=== PATIENT | female | born 1950 | race American Indian/Alaskan Native ===

== ENCOUNTER 2016-10-31 10:35 | Inpatient (IN) | payer MEDICAID, MEDICARE ==
[2016-10-31 12:04] LABS: Basophils % (Auto) 0.4 % (0.0-1.8); Eosinophils % (Auto) 0.4 % (0.0-4.3); Hematocrit 35.4 % (30.3-42.9); Hemoglobin 11.5 gm/dl (10.1-14.3); Mean Corpuscular HGB Conc 33 % (30-34); Mean Corpuscular Hemoglobin 31 pg (28-32); Mean Corpuscular Volume 96 fl (79-97); Platelet Count 185 K/mm3 (140-440); Red Blood Count 3.68 M/mm3 (3.65-5.03); Red Cell Distribution Width 14.8 % (13.2-15.2)
[2016-10-31 12:19] LABS: Alanine Aminotransferase 20 units/L (7-56); Albumin 4.5 g/dL (3.9-5); Albumin/Globulin Ratio 1.8 %; Alkaline Phosphatase 63 units/L (35-129); Anion Gap 20 mmol/L; BUN/Creatinine Ratio 21.66; Bilirubin,Total 0.5 mg/dL (0.1-1.2); Blood Urea Nitrogen 13 mg/dL (7-17); Calcium 9.5 mg/dL (8.4-10.2); Carbon Dioxide 26 mmol/L (22-30); Chloride 98.6 mmol/L (98-107); Glucose 146 mg/dL (65-100); Lipase 58 units/L (13-60); Potassium 3.9 mmol/L (3.6-5.0); Sodium 141 mmol/L (137-145)
[2016-10-31 12:34] LABS: Bacteria,Urine 4+ /HPF (Negative); Bilirubin,Urine NEG (Negative); Blood,Urine NEG (Negative); Ketones,Urine TR mg/dL (Negative); Leukocyte Esterase,Urine TR (Negative); Mucus,Urine 2+ /HPF; Nitrite,Urine POS (Negative)
[2016-10-31] MEDS ORDERED: NACL ONE (16:51)
[2016-10-31] MEDS ORDERED: ZOFRAN IV ONE (16:52)
[2016-10-31] MEDS ORDERED: NACL 0.9% 1000 ML 1,000 ML IV ONE (16:52)
[2016-10-31] MEDS ORDERED: PEPCID IV ONE (16:52)
[2016-10-31] MEDS ORDERED: BENTYL IM ONE (16:53)
--- NOTE | 2016-10-31 16:54 | Emergency Department Report ---
ED Abdominal Pain HPI - General Chief Complaint: Abdominal Pain Stated Complaint: ABD PAIN Time Seen by Provider: 10/31/16 16:42 Source: patient, RN notes reviewed Mode of arrival: Ambulatory Limitations: No Limitations - History of Present Illness Initial Comments: This is a 66-year-old female. She is previously unknown to me. Her primary care doctor is at [facility]. She reports a past medical history of hypertension, diabetes and high cholesterol. Distant history of 3. Patient presents to the ER with abdominal pain. Abdominal pain present for the past few days. Epigastric, bilateral upper quadrants. Positive nausea, no vomiting. No lower abdominal pain. Patient thinks that she is constipated. No fevers or chills. No chest pain or soreness of breath. Symptoms have been present for the past few days. They worsen with palpation, decreased with rest. MD Complaint: abdominal pain -: Gradual Location: LUQ, RUQ, epigastric Radiation: epigastric Severity: moderate Quality: cramping Consistency: intermittent Improves With: rest Associated Symptoms: nausea, constipation. denies: dysuria - Related Data Home Medications Medication Instructions Recorded Confirmed Last Taken metFORMIN [Glucophage] 500 mg PO BID 05/21/13 10/31/16 10/31/16 Rosuvastatin Calcium 10 mg PO DAILY 10/31/16 10/31/16 10/30/16 Previous Rx's Medication Instructions Recorded Last Taken Type amLODIPine [Norvasc] 10 mg PO DAILY #30 tab 10/26/14 10/31/16 Rx Allergies Allergy/AdvReac Type Severity Reaction Status Date / Time acetaminophen [From Tylenol] Allergy Swelling Verified 05/21/13 13:33 aspirin Allergy Hives Verified 10/31/16 11:10 [From Goody's Headache Powder] caffeine Allergy Hives Verified 10/31/16 11:10 [From Goody's Headache Powder] potassium Allergy Hives Verified 10/31/16 11:10 [From Goody's Headache Powder] Sulfa (Sulfonamide Allergy Itching Verified 05/21/13 13:33 Antibiotics) lisinopril AdvReac Angioedema Verified 10/26/14 06:07 ED Review of Systems ROS: Stated complaint: ABD PAIN Other details as noted in HPI Constitutional: denies: fever Eyes: denies: eye discharge ENT: denies: epistaxis Respiratory: denies: cough Cardiovascular: denies: chest pain Gastrointestinal: abdominal pain, nausea, constipation Genitourinary: denies: dysuria Musculoskeletal: denies: back pain Skin: denies: lesions Neurological: weakness Psychiatric: denies: anxiety ED Past Medical Hx - Past Medical History Hx Hypertension: Yes Hx Diabetes: Yes - Surgical History Additional Surgical History: broken fibula 04, x 3 - Social History Smoking Status: Never Smoker Substance Use Type: Alcohol - Medications Home Medications: Home Medications Medication Instructions Recorded Confirmed Last Taken Type metFORMIN [Glucophage] 500 mg PO BID 05/21/13 10/31/16 10/31/16 History amLODIPine [Norvasc] 10 mg PO DAILY #30 tab 10/26/14 10/31/16 10/31/16 Rx Rosuvastatin Calcium 10 mg PO DAILY 10/31/16 10/31/16 10/30/16 History ED Physical Exam - General Limitations: No Limitations General appearance: alert, in no apparent distress - Head Head exam: Present: atraumatic, normocephalic - Eye Eye exam: Present: normal appearance, EOMI. Absent: nystagmus - ENT ENT exam: Present: normal exam, normal orophraynx, mucous membranes moist, normal external ear exam - Neck Neck exam: Present: normal inspection, full ROM. Absent: tenderness, meningismus - Respiratory Respiratory exam: Present: normal lung sounds bilaterally. Absent: respiratory distress, wheezes, rales, rhonchi, stridor, decreased breath sounds - Cardiovascular Cardiovascular Exam: Present: regular rate, normal rhythm, normal heart sounds. Absent: bradycardia, tachycardia, irregular rhythm, systolic murmur, diastolic murmur, rubs, gallop - GI/Abdominal GI/Abdominal exam: Present: soft, tenderness, normal bowel sounds, other (there is mild diffuse abdominal tenderness. There is no rebound, guarding or peritoneal signs.). Absent: distended, guarding, rebound, rigid, pulsatile mass - Extremities Exam Extremities exam: Present: normal inspection, full ROM, normal capillary refill. Absent: tenderness, pedal edema, joint swelling, calf tenderness - Back Exam Back exam: Present: normal inspection, full ROM. Absent: tenderness, CVA tenderness (R), CVA tenderness (L), muscle spasm, paraspinal tenderness, vertebral tenderness - Neurological Exam Neurological exam: Present: alert, oriented X3, other (Extraocular movements intact. Tongue midline. No facial droop. Facial sensation intact to light touch in the V1, V2, V3 distribution bilaterally. 5 and 5 strength in 4 extremities.. Sensation is intact to light touch in 4 extremities.). Absent: motor sensory deficit - Psychiatric Psychiatric exam: Present: normal affect, normal mood - Skin Skin exam: Present: warm, dry, intact, normal color. Absent: rash ED Course Vital Signs 10/31/16 10/31/16 11:10 17:57 Temperature 99.3 F Pulse Rate 108 H 103 H Respiratory 18 18 Rate Blood Pressure 160/84 Blood Pressure 160/86 [Left] O2 Sat by Pulse 96 Oximetry - Reevaluation(s) Reevaluation #1: 10/31/16 17:42 Differential diagnosis: GERD, gastritis, pancreatitis, urinary tract infection, colitis, diverticulitis, constipation Assessment and plan: 66-year-old female with mild diffuse abdominal tenderness, low-grade temperature. No chest pain or shortness of breath. EKG is not morphologically consistent with STEMI. CT scan of abdomen and pelvis was ordered. She will be treated symptomatically. The urinalysis suggests urinary tract infection, but the patient does not endorse irritative or obstructive urinary symptoms. The patient's CT scan does not demonstrate surgical disease, she will be treated empirically for atypical presentation of urinary tract infection. 10/31/16 17:43 Reevaluation #2: 10/31/16 18:35 ct scan shows sbo. ng tube ordered Dr Vasquez of [facility] will follow as a consult Dr Feliciano of hospital medicine to admit ED Medical Decision Making - Lab Data Result diagrams: 10/31/16 11:45 10/31/16 11:45 Vital Signs 10/31/16 11:10 Temperature 99.3 F Pulse Rate 108 H Respiratory 18 Rate Blood Pressure 160/84 O2 Sat by Pulse 96 Oximetry Lab Results 10/31/16 10/31/16 10/31/16 Range/Units 11:45 11:45 12:07 WBC 7.0 (4.5-11.0) K/mm3 RBC 3.68 (3.65-5.03) M/mm3 Hgb 11.5 (10.1-14.3) gm/dl Hct 35.4 (30.3-42.9) % MCV 96 (79-97) fl MCH 31 (28-32) pg MCHC 33 (30-34) % RDW 14.8 (13.2-15.2) % Plt Count 185 (140-440) K/mm3 Lymph % (Auto) 11.3 L (13.4-35.0) % [place] % (Auto) 8.8 H (0.0-7.3) % Eos % (Auto) 0.4 (0.0-4.3) % Baso % (Auto) 0.4 (0.0-1.8) % Lymph # 0.8 L (1.2-5.4) K/mm3 [place] # 0.6 (0.0-0.8) K/mm3 Eos # 0.0 (0.0-0.4) K/mm3 Baso # 0.0 (0.0-0.1) K/mm3 Seg Neutrophils % 79.1 H (40.0-70.0) % Seg Neutrophils # 5.5 (1.8-7.7) K/mm3 Sodium 141 (137-145) mmol/L Potassium 3.9 (3.6-5.0) mmol/L Chloride 98.6 (98-107) mmol/L Carbon Dioxide 26 (22-30) mmol/L Anion Gap 20 mmol/L BUN 13 (7-17) mg/dL Creatinine 0.6 L (0.7-1.2) mg/dL Estimated GFR > 60 ml/min BUN/Creatinine Ratio 21.66 % Glucose 146 H (65-100) mg/dL Calcium 9.5 (8.4-10.2) mg/dL Total Bilirubin 0.5 (0.1-1.2) mg/dL AST 30 (5-40) units/L ALT 20 (7-56) units/L Alkaline Phosphatase 63 (35-129) units/L Total Protein 7.0 (6.3-8.2) g/dL Albumin 4.5 (3.9-5) g/dL Albumin/Globulin Ratio 1.8 % Lipase 58 (13-60) units/L Urine Color Yellow (Yellow) Urine Turbidity Slightly-cloudy (Clear) Urine pH 6.0 (5.0-7.0) Ur Specific [place] 1.023 (1.003-1.030) Urine Protein 100 mg/dl (Negative) mg/dL Urine Glucose (UA) Neg (Negative) mg/dL Urine Ketones Tr (Negative) mg/dL Urine Blood Neg (Negative) Urine Nitrite Pos (Negative) Urine Bilirubin Neg (Negative) Urine Urobilinogen 2.0 (<2.0) mg/dL Ur Leukocyte Esterase Tr (Negative) Urine WBC (Auto) 9.0 H (0.0-6.0) /HPF Urine RBC (Auto) 4.0 (0.0-6.0) /HPF U Epithel Cells (Auto) 4.0 (0-13.0) /HPF Urine Bacteria (Auto) 4+ (Negative) /HPF Urine Mucus 2+ /HPF - EKG Data 10/31/16 17:44 Normal sinus, 100 bpm, shortened OH interval, QTc 686 ms, abnormal EKG, not morphologically consistent with STEMI. - Radiology Data Radiology results: report reviewed, image reviewed CT scan of abdomen and pelvis with IV contrast: There is nonspecific diffusely decreased density of the liver parenchyma. There is prominent fluid noted in a distended duodenum. There is prominent fluid throughout multiple loops of distended small bowel. Distended loops are noted in both abdomen and pelvis, likely involving the jejunum, torsion of ileum. General ileum is normal in caliber. Findings are suggestive of small bowel obstruction. There is slight well appearance and mesentery, raising suspicion of internal hernia. Critical care attestation.: If time is entered above; I have spent that time in minutes in the direct care of this critically ill patient, excluding procedure time. ED Disposition Clinical Impression: SBO (small bowel obstruction) Disposition: OP ADMITTED IP TO THIS HOSP Is pt being admited?: Yes Condition: Good
[2016-10-31] MEDS ORDERED: XYLOCAINE TOPICAL 4% TP ONE (18:16)
[2016-10-31] MEDS ORDERED: LIDOCAINE VISCOUS 2% PO ONE (18:16)
--- NOTE | 2016-10-31 18:22 | Cat Scan Report ---
FINAL REPORT EXAM: CT ABDOMEN PELVIS W CON HISTORY: abd pain TECHNIQUE: CT examination of the ABDOMEN after IV contrast CT examination of the PELVIS after IV contrast PRIORS: None. FINDINGS: Slight linear scar versus atelectasis in left lower lobe. Nonspecific diffusely decreased density of liver parenchyma may reflect mild fatty infiltration. No visualized focal liver lesion. Normal-appearing gallbladder, adrenals, and pancreas. Nonspecific lobulated hypodense lesion is noted in the medial spleen. Discontinuous peripheral enhancement is suggested. This may be a 17 mm hemangioma. Intact normal caliber abdominal aorta and IVC. Normal-appearing kidneys and ureters. Small hiatal hernia. Otherwise normal appearing stomach. There is prominent fluid in a slightly distended duodenum. There is prominent fluid throughout multiple loops of distended small bowel. These distended loops are noted in both the abdomen and pelvis likely involving jejunum and portion of ileum. Terminal ileum caliber is normal as is distal ileum. Transition point not specifically identified. In the right pelvis, there is slight whirled appearance of mesentery raising suspicion of internal hernia. Findings may represent small bowel obstruction. Slight pelvic free fluid may be reactive. Normal-appearing urinary bladder. Uterus not visualized. Normal-appearing rectum and sigmoid colon. No evidence of free air or colonic distention. Normal-appearing cecum and terminal ileum. Appendix not visualized. No pericecal inflammation. IMPRESSION: Findings suggestive of small bowel obstruction. Although transition point is not specifically identified, right pelvic mesenteric changes raise suspicion of internal hernia Small hiatal hernia. Otherwise normal appearing stomach Suggestion of mild hepatic steatosis Hypodense lobulated splenic lesion may be a hemangioma At the time of the signed report, I discussed the findings over the phone with Dr Avila
--- NOTE | 2016-10-31 18:44 | Admit Criteria Form ---
Admission Criteria Documentation: ABDOMINAL PAIN Clinical Indications for Admission to Inpatient Care (Place 'X' for any and all applicable criteria): Admission is indicated for ANY ONE of the following(1)(2)(3)(4)(5): [X ]I. Inpatient admission required rather than observation care (Also use Abdominal Pain: Observation Care, as appropriate) because of ANY ONE of the following: [ ]a) Severe pain requiring acute inpatient management [ ]b) Identification of etiology/finding that requires inpatient care (eg, aortic dissection, free air) [ ]c) Absent bowel sounds with complete ileus(6) [ ]d) Suspected toxic megacolon [ ]e) Severe electrolyte abnormalities requiring inpatient care [ ]f) High fever or infection requiring inpatient admission as indicated by ANY ONE of following(7)(8): [ ] i) Appropriate outpatient or observational care antimicrobial treatment unavailable, not effective, or not feasible [ ] ii) Documented bacteremia [ ] iii) Temperature > 104.9 degrees F (oral) [ ] iv) T >103.1 F (oral) or < 96.8 F(rectal) that does not respond to all emergency treatment measures [X ]g) Signs of intestinal obstruction [B] [ ]h) Hemodynamic instability [ ]i) IV fluid to replace significant ongoing losses (greater than 3 L/m2 per day) (12)(13) [ ]j) Percutaneous or open drainage (eg, abscess, biliary tract ) procedures [ ]k) Parenteral nutrition regimen that must be implemented on inpatient basis [ ]l) Other condition,treatment or monitoring requiring inpatient admission. [ ]II. Peritoneal signs present [ ]III. Surgery needed that cannot be performed on an ambulatory basis. [ ]IV. Evaluation requires patient to not eat or drink for extended period ( eg, more than 24 hours). [ ]V. Contraindications and/or Inappropriate clinical situations for Observational Care in patients with abdominal pain, when ANY ONE of the following is required: [ ]a) Thorough evaluation is required to prevent catastrophic events due to delays in diagnosing (e.g.Mesenteric ischemia) 1,3 [ ]b) Patient with severe pathology or with chronic symptoms unlikely to improve in the ED stay (3) [ X]. General contraindications and/or Inappropriate clinical situations for Observational Care in patients with abdominal pain, when ANY ONE of the following is required: [ X]a) Prediction of prolongation of LOS based on ANY ONE of the following may be considered as a contraindication for observational care 2, 3, 4, 5, 6, 7, 8, 9, 10, 11 [X ]i) Age > 65 yrs. [ ]ii) Patient arriving by ambulance [ ]iii) Patient with high acuity [ ]iv) Patient requiring vital sign monitoring [ ]v) Patient on IV medication [ ]b) Systolic blood pressures 180mmHg 3,12 [ ]c) Patient with altered mental status including delirium and other alteration of consciousness, (3) [ ]d) Patient whose discharge disposition will be to a prison home or rehabilitation home should not be managed in Emergency Department Observation Unit. CMS rule requires 3 days hospital stay before such placement.3,13 [ ]e) Patient with failure to thrive due to broad array of etiologies 3,16,17 [ ]f) Inability to ambulate 3,14 Extended stay beyond goal length of stay may be needed for(2)(3): [ ]a) Persistent abdominal pain with suspected intra-abdominal process [ ]b) Diagnosed condition requiring continued stay (e.g., pancreatitis, complicated diverticulitis) [ ]c) Surgery (e.g., colectomy) The original [employer] [facility] content created by [employer] has been revised. The portions of the content which have been revised are identified through the use of italic text or in bold, and [facility] has neither reviewed nor approved the modified material.All other unmodified content is copyright [employer] [facility]. Please see references footnoted in the original [facility] edition 2016 Admission Criteria Met: Yes
[2016-10-31] MEDS ORDERED: MAGNESIUM SULFATE 2GM/50ML 2 GM/50 ML BAG IV ONE ×2 (19:04→20:40)
[2016-10-31] MEDS ORDERED: ROCEPHIN/NS 1 GM/50 ML 1 GM/50 ML BAG IV ONE (19:04)
--- NOTE | 2016-10-31 19:45 | Consultation ---
History of Present Illness Consult date: 10/31/16 Reason for consult: other (Small bowel obstruction) Chief complaint: Abdominal thightness - History of present illness History of present illness: 66 y/o female with 1 day history of abdominal thightness. Denies nausea or vomiting. CT of the abdomen is suspicious for small bowel obstruction. Past History Past Medical History: diabetes, hypertension, hyperlipidemia Past Surgical History: (times 3), hysterectomy Social history: single, Lives alone, alcohol abuse (3 pints of vodka per week.) Medications and Allergies Allergies Allergy/AdvReac Type Severity Reaction Status Date / Time acetaminophen [From Tylenol] Allergy Swelling Verified 05/21/13 13:33 aspirin Allergy Hives Verified 10/31/16 11:10 [From Goody's Headache Powder] caffeine Allergy Hives Verified 10/31/16 11:10 [From Goody's Headache Powder] potassium Allergy Hives Verified 10/31/16 11:10 [From Goody's Headache Powder] Sulfa (Sulfonamide Allergy Itching Verified 05/21/13 13:33 Antibiotics) lisinopril AdvReac Angioedema Verified 10/26/14 06:07 Home Medications Medication Instructions Recorded Confirmed Last Taken Type metFORMIN [Glucophage] 500 mg PO BID 05/21/13 10/31/16 10/31/16 History amLODIPine [Norvasc] 10 mg PO DAILY #30 tab 10/26/14 10/31/16 10/31/16 Rx Rosuvastatin Calcium 10 mg PO DAILY 10/31/16 10/31/16 10/30/16 History Review of Systems All systems: negative (present complaint) Exam Vital Signs Temp Pulse Resp BP Pulse Ox 99.3 F 108 H 18 160/84 96 10/31/16 11:10 10/31/16 11:10 10/31/16 11:10 10/31/16 11:10 10/31/16 11:10 - General physical appearance Positive: well developed, well nourished, no distress - Eyes Positive: PERRL, normal occular movement - ENT Positive: normal pinna, normal nares, normal mucosa, no hearing loss, no congestion - Neck Positive: no masses, no bruits, trachea midline, no venous distension - Respiratory Positive: normal expansion, normal respiratory effort, clear to auscultation - Cardiovascular Rhythm: regular Heart Sounds: Present: S1 & S2 - Extremities Extremities: no ischemia, pulses intact, No edema - Breasts Breasts: deferred - Abdomen Abdomen: Present: soft, bowel sounds normal, distended (mild). Absent: tender, masses, rebound, guarding - Genitourinary Female Genitourinary: deferred - Integumentary no rash, no growths, no abnormal pigmentation - Neurologic Neurologic: alert and oriented to time, place and person, motor strength and sensation are grossly intact - Musculoskeletal normal gait, normal posture - Psychiatric Psychiatric: appropriate mood/affect, intact judgment & insight Results - Labs 10/31/16 11:45 10/31/16 11:45 - Imaging CT scan - abdomen: report reviewed, image reviewed Assessment and Plan IMP: #1. Small bowel obsruction. #2. Diabetes. #3. Hypertension. #4. Hypercholesterolemia. #5. Alcohol abuse. RECOMMENDATIONS: NG to low intermitent suction. Small bowel series with Gastrografin tomorrow.
[2016-10-31] MEDS ORDERED: LIDOCAINE VISCOUS 2% ONE (20:40)
[2016-10-31] MEDS ORDERED: XYLOCAINE TOPICAL 2% ONE (20:40)
--- NOTE | 2016-10-31 22:36 | Event Note ---
Date: 10/31/16 See H/p in reports SBO HTN T2DM HLD
[2016-10-31] MEDS: CATAPRES-TTS PATCH TD SCH (22:55)
[2016-10-31] MEDS ORDERED: NACL 0.9% 1000 ML 1,000 ML IV SCH (23:00)
[2016-11-01] MEDS: NOVOLOG SUB-Q SCH ×6 (00:55→23:45)
[2016-11-01 05:52] LABS: Basophils % (Auto) 0.4 % (0.0-1.8); Hematocrit 37.9 % (30.3-42.9); Hemoglobin 12.6 gm/dl (10.1-14.3); Mean Corpuscular HGB Conc 33 % (30-34); Mean Corpuscular Hemoglobin 32 pg (28-32); Mean Corpuscular Volume 97 fl (79-97); Red Blood Count 3.92 M/mm3 (3.65-5.03); Red Cell Distribution Width 14.9 % (13.2-15.2); White Blood Count 8.6 K/mm3 (4.5-11.0)
[2016-11-01 05:57] LABS: Anion Gap 22 mmol/L; Blood Urea Nitrogen 8 mg/dL (7-17); Calcium 9.2 mg/dL (8.4-10.2); Carbon Dioxide 24 mmol/L (22-30); Chloride 99.9 mmol/L (98-107); Glucose 148 mg/dL (65-100); Potassium 3.4 mmol/L (3.6-5.0); Sodium 142 mmol/L (137-145)
[2016-11-01 06:08] LABS: Platelet Count 147 K/mm3 (140-440)
[2016-11-01] MEDS ORDERED: ZOSYN/NS 4.5GM/100ML 4.5 GM/100 ML VIAL IV SCH (08:30)
--- NOTE | 2016-11-01 09:44 | History and Physical Report ---
CHIEF COMPLAINT: Abdominal pain for the last 2 days. HISTORY OF PRESENT ILLNESS: A 66-year-old -[place] female with past medical history of hypertension; diabetes; hyperlipidemia, comes in for abdominal pain for last 2 days. Nausea present. Pain is about 8 on a scale of 1-10. No vomiting. Did not have any bowel movement in the last 2 days. Did not pass gas in the last 2 days. The pain is located to the periumbilical region. It is sharp, intermittent in nature. No fever, no chills. Sometimes cramping pain. Improves with lying down. No dysuria. PAST MEDICAL HISTORY: As mentioned, hypertension; diabetes; and hyperlipidemia. CURRENT MEDICATIONS: Metformin 500 mg twice a day, rosuvastatin 10 mg once a day and amlodipine 10 mg once a day. PAST SURGICAL HISTORY: x 3 in the remote past. FAMILY HISTORY: Significant for hypertension. SOCIAL HISTORY: Does not smoke. No alcohol, no recreational drugs. REVIEW OF SYSTEMS: CONSTITUTIONAL: No weight loss, no weight gain, no fever, no chills. HEENT: No sore throat. No postnasal drip. No diplopia. No nasal regurgitation of fluids. RESPIRATORY: No cough, no shortness of breath, no wheezing. CARDIOVASCULAR: No chest pain, no palpitation. No diaphoresis. GASTROINTESTINAL: As mentioned in history of present illness, abdominal pain and nausea present. Also, constipation present. GENITOURINARY: No dysuria, no flank pain. MUSCULOSKELETAL: No joint pains. No muscle pains. SKIN: No rashes. PSYCHIATRIC: No depression or anxiety. CENTRAL NERVOUS SYSTEM: No syncope, seizures, or weakness. A 14-point review of systems has been otherwise negative. PHYSICAL EXAMINATION: GENERAL: Elderly female lying in bed, in slight pain. VITAL SIGNS: Temperature is 100 and 102.4, pulse is 108, blood pressure is 150/91. HEENT: Unremarkable. Pupils equal and reactive. Tongue is moist. NECK: Supple, no lymphadenopathy, no thyromegaly. LUNGS: Clear to auscultation and percussion. Good air entry. CARDIOVASCULAR: S1, S2 heard. No gallop, no murmur, no rub. Apical impulse in left fifth intercostal space and midclavicular line. ABDOMEN: Bowel sounds are decreased. Guarding and tenderness present in the periumbilical region. Abdomen distended. Hernial orifices are normal. EXTREMITIES: Good pedal pulses. No pedal edema. CENTRAL NERVOUS SYSTEM: Alert and oriented x 4. NEUROLOGIC: Nonfocal exam. SKIN: Normal. LABORATORY DATA: White count is 7000, H and H is 11.5 and 35.4, platelet count is 185,000. Sodium is 141, potassium is 3.9, BUN and creatinine 13 and 0.6, glucose is 146. LFTs are normal. Urine shows WBC of 9.0. IMAGING STUDIES: CT of the abdomen shows small-bowel obstruction. The transition point is not specifically indentified. Right pelvic mesentery changes raise suspicion of internal hernia. Small hiatal hernia, otherwise normal appearing stomach. Also, mild hepatic steatosis. ASSESSMENT AND PLAN: 1. Small-bowel obstruction. We will keep the patient n.p.o. Surgery consulted. Dr. Vasquez to see the patient. NG tube was not inserted as the patient was not vomiting. Will defer to surgery. 2. Hypertension. The patient initiated on Catapres patch as the patient is n.p.o. 3. Type 2 diabetes mellitus, insulin coverage. Metformin was kept on hold. 4. Hyperlipidemia, statins kept on hold. 5. Deep vein thrombosis prophylaxis, Lovenox 40 mg subcutaneous daily. In summary, the patient has small -bowel obstruction with a history of hypertension, diabetes, and hyperlipidemia. Surgery consulted. JOB# [id number] HERBER/GEORGES
[2016-11-01] MEDS ORDERED: LOVENOX SUB-Q SCH (10:00)
--- NOTE | 2016-11-01 13:11 | Progress Note ---
Assessment and Plan IMP: Small bowel obstruction with worsening symptoms. Plans: Exploratory laparotomy. The patient was explained the need for the operation, the risk and complications. Risks like paraplegia, quadriplegia, paralysis, loss of limb, loss of eyesight, coma and or . Complications like bleeding, infection, intestinal injuries and leaks, and abscesses. She seems to understand and requested us perform the procedure. Subjective Date of service: 11/01/16 Patient Reports: Positive: still having pain (worse than last night), bowel movement (liquid), fever, other (increase abdominal distention.) Objective Vital Signs - 12hr 11/01/16 08:00 Temperature 99 F Pulse Rate [ 122 H Brachial] Respiratory 18 Rate Blood Pressure 132/75 [Left Arm] O2 Sat by Pulse 96 Oximetry - Abdomen soft, tender, bowel sounds hypoactive, distended - Labs 11/01/16 04:59 11/01/16 04:59 Diabetes panel 11/01/16 Range/Units 04:59 Sodium 142 (137-145) mmol/L Potassium 3.4 L (3.6-5.0) mmol/L Chloride 99.9 (98-107) mmol/L Carbon Dioxide 24 (22-30) mmol/L BUN 8 (7-17) mg/dL Creatinine 0.5 L (0.7-1.2) mg/dL Glucose 148 H (65-100) mg/dL Calcium 9.2 (8.4-10.2) mg/dL Calcium panel 11/01/16 Range/Units 04:59 Calcium 9.2 (8.4-10.2) mg/dL Pituitary panel 11/01/16 Range/Units 04:59 Sodium 142 (137-145) mmol/L Potassium 3.4 L (3.6-5.0) mmol/L Chloride 99.9 (98-107) mmol/L Carbon Dioxide 24 (22-30) mmol/L BUN 8 (7-17) mg/dL Creatinine 0.5 L (0.7-1.2) mg/dL Glucose 148 H (65-100) mg/dL Calcium 9.2 (8.4-10.2) mg/dL Adrenal panel 11/01/16 Range/Units 04:59 Sodium 142 (137-145) mmol/L Potassium 3.4 L (3.6-5.0) mmol/L Chloride 99.9 (98-107) mmol/L Carbon Dioxide 24 (22-30) mmol/L BUN 8 (7-17) mg/dL Creatinine 0.5 L (0.7-1.2) mg/dL Glucose 148 H (65-100) mg/dL Calcium 9.2 (8.4-10.2) mg/dL - Imaging Abdominal x-ray: image reviewed (with Dr. Bowen; there is still marked dilatation of the small bowel although some contrast has passed to the colon.)
[2016-11-01] MEDS ORDERED: DIPRIVAN 10 MG/ML IV ONE (13:35)
[2016-11-01] MEDS ORDERED: DILAUDID ONE (13:36)
[2016-11-01] MEDS ORDERED: QUELICIN ONE (13:37)
[2016-11-01] MEDS ORDERED: ZEMURON IV ONE (13:37)
[2016-11-01] MEDS ORDERED: XYLOCAINE MPF 2% ONE (13:40)
[2016-11-01] MEDS ORDERED: ROBINUL ONE (13:41)
[2016-11-01] MEDS ORDERED: ZOFRAN IV PRN (13:42)
--- NOTE | 2016-11-01 13:50 | Anesthesia Consultation ---
Anesthesia Consult and Med Hx Date of service: 11/01/16 - Airway Anesthetic Teeth Evaluation: Poor ROM Head & Neck: Adequate Mental/Hyoid Distance: Adequate Mallampati Class: Class II Intubation Access Assessment: Probably Good - Pulmonary Exam CTA: Yes - Cardiac Exam Cardiac Exam: RRR - Pre-Operative Health Status ASA Pre-Surgery Classification: ASA2, Emergency Proposed Anesthetic Plan: General - Pre-Anesthesia Comment Pre-Anesthesia Comments: patient here for SBO. - Pulmonary Hx Smoking: No Hx Sleep Apnea: No - Cardiovascular System Hx Hypertension: Yes (HLD) - Central Nervous System Hx Psychiatric Problems: No - Endocrine Hx Non-Insulin Dependent Diabetes: Yes - Additional Comments Anesthesia Medical History Comments: s/p c/s, hysterectomy, NAC
[2016-11-01] MEDS ORDERED: DILAUDID IV PRN (13:51)
[2016-11-01] MEDS ORDERED: DEMEROL IV PRN (13:51)
--- NOTE | 2016-11-01 13:51 | Anesthesia Day of Surgery ---
Anesthesia Day of Surgery - Day of Surgery Patient Examined: Yes Patient H&P Reviewed: Yes Patient is NPO: Yes
--- NOTE | 2016-11-01 14:12 | Event Note ---
Date: 11/01/16 This is second attempt to see patient, however, she is gone for surgery after SBFT reviewed by general surgeon, Dr. Vasquez.
[2016-11-01] MEDS ORDERED: DILAUDID IV ONE (14:13)
[2016-11-01] MEDS ORDERED: NACL 0.9% 1000 ML 1,000 ML IV SCH (15:00)
[2016-11-01] MEDS ORDERED: DECADRON ONE (15:20)
[2016-11-01] MEDS ORDERED: ZOFRAN ONE (15:20)
[2016-11-01] MEDS ORDERED: NACL 0.9% 1000 ML 1,000 ML ONE (15:20)
--- NOTE | 2016-11-01 16:54 | Operative Report ---
Operative Report Operative Report: Date of operation: 11/19/2016. Preoperative diagnosis: Small bowel obstruction. Postoperative diagnosis: #1. Small bowel obstruction. 2. Intraperitoneal adhesions. 3. Mobile enterotomy. Operation: #1. Exploratory laparotomy. #2. Lysis of adhesions. #3. Small bowel enterorrhaphy. Surgeon: Benito Vasquez M.D. Findings: 66 years old female admitted to the hospital with some abdominal pain and small bowel obstruction diagnosed by CT of the abdomen and pelvis. A small bowel series today showed very slow transit to the colon. The patient's white count went up, she was feeling worst and with more pain and patient was taken to the operating room for an exploratory laparotomy. At operation we found intraperitoneal adhesions. There was a loop of bowel adhered to the right abdominal wall in the infraumbilical area very close to the midline. While taking down these adhesions very small enterotomy occurred which was immediately controlled with a [id number] stitch of 3-0 Vicryl. Procedure: Under general anesthesia the patient was prepped and draped in the usual sterile manner. After proper timeout a midline incision was made with a # 10 blade from above the umbilicus to above the symphysis pubis. Dissection was carried down through the subcutaneous tissue into the fascia at the midline. The fascia was entered with electrocautery then we continued dividing it together with the peritoneum caudally. We noticed the adhered bowel to the right side of the incision. The decision was completely opened and started dissection of the bowel from the abdominal wall. This was slow and tedious. During the dissection a small enterotomy occurred and this was immediately controlled with a [id number] stitch of 3-0 Vicryl. We continued dissecting the bowel away from the wall. When the loop of bowel was freed from the wall it was inspected. It was minimally traumatized. It was checked for any other enterotomies which were not found. Then we went ahead and buried the area of the enterotomy and the figure of 8 stitch with multiple interrupted stitches of 3-0 Vicryl in a transverse fashion. In this manner the repair of the enterotomy was completed. After this was done the bowel was ran from the ileocecal valve all the way up to the ligament of Treitz inspecting it thoroughly. The position of the NG tube was checked and it was satisfactory. At this time preparations were made for closure. The cavity was irrigated with copious amount of normal saline solution. We proceeded to close the abdominal cavity with multiple interrupted stitches of #1 Vicryl for the fascia. Subcutaneous tissue was irrigated with normal saline solution and the skin edges were approximated with skin ivette. The wound was dressed with sterile dressings and the patient was awakened, extubated and transferred to the recovery room in good condition. Estimated blood loss: Negligible. Intravenous fluid replacement: Crystalloids. Condition: Stable. Specimens: None.
[2016-11-01] MEDS: DILAUDID IV PRN ×2 (17:10→17:20)
--- NOTE | 2016-11-01 17:28 | Post Anesthesia Evaluation ---
- Post Anesthesia Evaluation Patient Participated: Yes Airway Patent: Yes Stable Respiratory Function: Yes Temp > 96.8F: Yes Pain Manageable: Yes Adequeate Hydration: Yes Anesthesia Complications: No Block Receding Appropriately: Not Applicable
[2016-11-01] MEDS ORDERED: D5LR 1,000 ML IV SCH (18:11)
[2016-11-01] MEDS: HEPARIN SUB-Q SCH (22:15)
[2016-11-01] MEDS: MORPHINE IV PRN (23:40)
[2016-11-02 03:20] LABS: Basophils % (Auto) 0.1 % (0.0-1.8); Hematocrit 39.1 % (30.3-42.9); Hemoglobin 12.7 gm/dl (10.1-14.3); Mean Corpuscular HGB Conc 33 % (30-34); Mean Corpuscular Hemoglobin 32 pg (28-32); Mean Corpuscular Volume 98 fl (79-97); Platelet Count 148 K/mm3 (140-440); Red Blood Count 4.01 M/mm3 (3.65-5.03); Red Cell Distribution Width 15.3 % (13.2-15.2); White Blood Count 8.4 K/mm3 (4.5-11.0)
[2016-11-02 03:40] LABS: Anion Gap 23 mmol/L; BUN/Creatinine Ratio 15.55; Blood Urea Nitrogen 14 mg/dL (7-17); Calcium 8.8 mg/dL (8.4-10.2); Carbon Dioxide 21 mmol/L (22-30); Chloride 107.8 mmol/L (98-107); Glucose 174 mg/dL (65-100); Potassium 3.3 mmol/L (3.6-5.0); Sodium 148 mmol/L (137-145)
[2016-11-02] MEDS: MORPHINE IV PRN ×3 (06:48→21:19)
[2016-11-02] MEDS: NOVOLOG SUB-Q SCH ×3 (06:49→17:30)
[2016-11-02] MEDS: HEPARIN SUB-Q SCH ×3 (06:50→23:22)
--- NOTE | 2016-11-02 08:19 | Fluoroscopy Report ---
SMALL BOWEL SERIES: HISTORY: Small bowel obstruction. FINDINGS: Correlation is made to the CT abdomen and pelvis with contrast performed yesterday. [employer] film of the abdomen demonstrates multiple dilated loops of small bowel throughout the abdomen. 4 fluoroscopic spot shots and multiple overhead radiographs were obtained following the ingestion of Gastrografin. Transit of the contrast agent through the bowel loops is delayed at approximately 3 hours. Multiple images again demonstrate multiple dilated loops of small bowel throughout the abdomen. Only a small amount of contrast agent is identified in the colon at 3 hours. The colon is normal caliber. IMPRESSION: Moderate to high-grade distal small bowel obstruction.
--- NOTE | 2016-11-02 09:03 | Progress Note ---
Subjective Date of service: 11/02/16 Principal diagnosis: s/p ex-lap POD 1 Interval history: Patient doing well from anesthesia standpoint. No complaints. Denies sore throat , dental damage. Had some nausea but was relieved once NG tube placed on suction. Objective - Constitutional Vitals: Vital Signs - 12hr 11/01/16 11/01/16 11/02/16 22:00 23:45 07:55 Temperature 98.3 F 99.8 F H Pulse Rate [ 100 H 123 H 114 H Brachial] Respiratory 20 18 Rate Respiratory 18 Rate [Abdomen] Blood Pressure 138/88 152/83 [Left Arm] O2 Sat by Pulse 97 97 97 Oximetry - Labs CBC & Chem 7: 11/02/16 03:07 11/02/16 03:07 Labs: Abnormal lab results 11/01/16 11/01/16 11/01/16 Range/Units 12:42 16:54 17:40 MCV (79-97) fl RDW (13.2-15.2) % Lymph % (Auto) (13.4-35.0) % Lymph # (1.2-5.4) K/mm3 Seg Neutrophils % (40.0-70.0) % Sodium (137-145) mmol/L Potassium (3.6-5.0) mmol/L Chloride (98-107) mmol/L Carbon Dioxide (22-30) mmol/L Glucose (65-100) mg/dL POC Glucose 229 H 270 H 279 H (70-105) 11/01/16 11/01/16 11/02/16 Range/Units 18:14 23:26 03:07 MCV 98 H (79-97) fl RDW 15.3 H (13.2-15.2) % Lymph % (Auto) 6.6 L (13.4-35.0) % Lymph # 0.6 L (1.2-5.4) K/mm3 Seg Neutrophils % 88.2 H (40.0-70.0) % Sodium (137-145) mmol/L Potassium (3.6-5.0) mmol/L Chloride (98-107) mmol/L Carbon Dioxide (22-30) mmol/L Glucose (65-100) mg/dL POC Glucose 174 H 166 H (70-105) 03/03/17 03/03/17 Range/Units 03:07 05:41 MCV (79-97) fl RDW (13.2-15.2) % Lymph % (Auto) (13.4-35.0) % Lymph # (1.2-5.4) K/mm3 Seg Neutrophils % (40.0-70.0) % Sodium 148 H (137-145) mmol/L Potassium 3.3 L (3.6-5.0) mmol/L Chloride 107.8 H (98-107) mmol/L Carbon Dioxide 21 L (22-30) mmol/L Glucose 174 H (65-100) mg/dL POC Glucose 186 H (70-105)
[2016-11-02] MEDS ORDERED: APRESOLINE IV PRN (10:37)
--- NOTE | 2016-11-02 10:46 | Progress Note ---
Assessment and Plan IMP: Stable 1st post op days after laparotomy and lysis of adhesions. PLAN: Continue with NG tube to low intermittent suction. labs in am. Ambulate tid. Subjective Date of service: 11/02/16 Patient Reports: Positive: no new complaints, feels better, still having pain ( op site), no flatus, no bowel movement Objective Vital Signs - 12hr 11/01/16 11/02/16 23:45 07:55 Temperature 98.3 F 99.8 F H Pulse Rate [ 123 H 114 H Brachial] Respiratory 20 18 Rate Blood Pressure 138/88 152/83 [Left Arm] O2 Sat by Pulse 97 97 Oximetry - Abdomen soft, tender (op site), bowel sounds hypoactive, wound (dressings dry and clear) - Labs 11/03/16 04:46 11/03/16 04:46 Diabetes panel 11/02/16 Range/Units 03:07 Sodium 148 H (137-145) mmol/L Potassium 3.3 L (3.6-5.0) mmol/L Chloride 107.8 H (98-107) mmol/L Carbon Dioxide 21 L (22-30) mmol/L BUN 14 (7-17) mg/dL Creatinine 0.9 D (0.7-1.2) mg/dL Glucose 174 H (65-100) mg/dL Calcium 8.8 (8.4-10.2) mg/dL Calcium panel 11/02/16 Range/Units 03:07 Calcium 8.8 (8.4-10.2) mg/dL Pituitary panel 11/02/16 Range/Units 03:07 Sodium 148 H (137-145) mmol/L Potassium 3.3 L (3.6-5.0) mmol/L Chloride 107.8 H (98-107) mmol/L Carbon Dioxide 21 L (22-30) mmol/L BUN 14 (7-17) mg/dL Creatinine 0.9 D (0.7-1.2) mg/dL Glucose 174 H (65-100) mg/dL Calcium 8.8 (8.4-10.2) mg/dL Adrenal panel 11/02/16 Range/Units 03:07 Sodium 148 H (137-145) mmol/L Potassium 3.3 L (3.6-5.0) mmol/L Chloride 107.8 H (98-107) mmol/L Carbon Dioxide 21 L (22-30) mmol/L BUN 14 (7-17) mg/dL Creatinine 0.9 D (0.7-1.2) mg/dL Glucose 174 H (65-100) mg/dL Calcium 8.8 (8.4-10.2) mg/dL
[2016-11-02] MEDS ORDERED: ATIVAN IV PRN (10:48)
[2016-11-02] MEDS ORDERED: D5LR 1,000 ML IV SCH ×4 (11:00→12:00)
[2016-11-02] MEDS ORDERED: NACL 0.45% 1000 ML 1,000 ML with KCL 20 MEQ IV SCH (11:00)
[2016-11-02] MEDS ORDERED: D5LR W/KCL 20 MEQ 20 MEQ/1,000 ML BAG IV SCH (12:00)
--- NOTE | 2016-11-02 15:17 | Progress Note ---
Assessment and Plan Assessment and plan: 1. SBO sp Ex lap and MEHRDAD Postop care per surgery 2. T2DM Continue sliding scale insulin 3. Hypokalemia Continue to replete IV 4. Hypernatremia We'll change her fluids to half-normal saline plus potassium. History Interval history: Denies abdominal pain, denies fever denies chest pain Hospitalist Physical - Physical exam Narrative exam: General: Patient appears well in no distress HEENT: MMM, EOMI cardiac: S1-S2 heard lungs: clear to auscultation, abdomen: soft, nontender, nondistended bowel sounds positive extremities: no edema clubbing or cyanosis Skin: no rash or lesion Neuro: no focal deficit Psych: appropriate behavior and mood, cognition intact - Constitutional Vitals: Temp Pulse Resp BP Pulse Ox 99.8 F H 114 H 18 152/83 97 11/02/16 07:55 11/02/16 10:00 11/02/16 10:00 11/02/16 07:55 11/02/16 07:55 Results - Labs CBC & Chem 7: 11/04/16 04:38 11/04/16 04:38 Labs: Laboratory Last Values WBC 8.4 K/mm3 (4.5-11.0) 11/02/16 03:07 RBC 4.01 M/mm3 (3.65-5.03) 11/02/16 03:07 Hgb 12.7 gm/dl (10.1-14.3) 11/02/16 03:07 Hct 39.1 % (30.3-42.9) 11/02/16 03:07 MCV 98 fl (79-97) H 11/02/16 03:07 MCH 32 pg (28-32) 11/02/16 03:07 MCHC 33 % (30-34) 11/02/16 03:07 RDW 15.3 % (13.2-15.2) H 11/02/16 03:07 Plt Count 148 K/mm3 (140-440) 11/02/16 03:07 Lymph % (Auto) 6.6 % (13.4-35.0) L 11/02/16 03:07 [place] % (Auto) 5.1 % (0.0-7.3) 11/02/16 03:07 Eos % (Auto) 0.0 % (0.0-4.3) 11/02/16 03:07 Baso % (Auto) 0.1 % (0.0-1.8) 11/02/16 03:07 Lymph # 0.6 K/mm3 (1.2-5.4) L 11/02/16 03:07 [place] # 0.4 K/mm3 (0.0-0.8) 11/02/16 03:07 Eos # 0.0 K/mm3 (0.0-0.4) 11/02/16 03:07 Baso # 0.0 K/mm3 (0.0-0.1) 11/02/16 03:07 Seg Neutrophils % 88.2 % (40.0-70.0) H 11/02/16 03:07 Seg Neutrophils # 7.4 K/mm3 (1.8-7.7) 11/02/16 03:07 Sodium 148 mmol/L (137-145) H 11/02/16 03:07 Potassium 3.3 mmol/L (3.6-5.0) L 11/02/16 03:07 Chloride 107.8 mmol/L (98-107) H 11/02/16 03:07 Carbon Dioxide 21 mmol/L (22-30) L 11/02/16 03:07 Anion Gap 23 mmol/L 11/02/16 03:07 BUN 14 mg/dL (7-17) 11/02/16 03:07 Creatinine 0.9 mg/dL (0.7-1.2) D 11/02/16 03:07 Estimated GFR > 60 ml/min 11/02/16 03:07 BUN/Creatinine Ratio 15.55 % 11/02/16 03:07 Glucose 174 mg/dL (65-100) H 11/02/16 03:07 POC Glucose 134 (70-105) H 11/02/16 12:09 Calcium 8.8 mg/dL (8.4-10.2) 11/02/16 03:07 Magnesium 1.2 mg/dL (1.7-2.3) L 10/31/16 18:03 Total Bilirubin 0.5 mg/dL (0.1-1.2) 10/31/16 11:45 AST 30 units/L (5-40) 10/31/16 11:45 ALT 20 units/L (7-56) 10/31/16 11:45 Alkaline Phosphatase 63 units/L (35-129) 10/31/16 11:45 Total Protein 7.0 g/dL (6.3-8.2) 10/31/16 11:45 Albumin 4.5 g/dL (3.9-5) 10/31/16 11:45 Albumin/Globulin Ratio 1.8 % 10/31/16 11:45 Lipase 58 units/L (13-60) 10/31/16 11:45 Urine Color Yellow (Yellow) 10/31/16 12:07 Urine Turbidity Slightly-cloudy (Clear) 10/31/16 12:07 Urine pH 6.0 (5.0-7.0) 10/31/16 12:07 Ur Specific [place] 1.023 (1.003-1.030) 10/31/16 12:07 Urine Protein 100 mg/dl mg/dL (Negative) 10/31/16 12:07 Urine Glucose (UA) Neg mg/dL (Negative) 10/31/16 12:07 Urine Ketones Tr mg/dL (Negative) 10/31/16 12:07 Urine Blood Neg (Negative) 10/31/16 12:07 Urine Nitrite Pos (Negative) 10/31/16 12:07 Urine Bilirubin Neg (Negative) 10/31/16 12:07 Urine Urobilinogen 2.0 mg/dL (<2.0) 10/31/16 12:07 Ur Leukocyte Esterase Tr (Negative) 10/31/16 12:07 Urine WBC (Auto) 9.0 /HPF (0.0-6.0) H 10/31/16 12:07 Urine RBC (Auto) 4.0 /HPF (0.0-6.0) 10/31/16 12:07 U Epithel Cells (Auto) 4.0 /HPF (0-13.0) 10/31/16 12:07 Urine Bacteria (Auto) 4+ /HPF (Negative) 10/31/16 12:07 Urine Mucus 2+ /HPF 10/31/16 12:07
[2016-11-02] MEDS: D5LR W/KCL 20 MEQ 20 MEQ/1,000 ML BAG IV SCH (21:42)
[2016-11-03] MEDS: NOVOLOG SUB-Q SCH ×4 (00:17→18:00)
[2016-11-03 05:47] LABS: Basophils % (Auto) 0.2 % (0.0-1.8); Hematocrit 33.3 % (30.3-42.9); Hemoglobin 10.8 gm/dl (10.1-14.3); Mean Corpuscular HGB Conc 32 % (30-34); Mean Corpuscular Hemoglobin 32 pg (28-32); Mean Corpuscular Volume 98 fl (79-97); Platelet Count 129 K/mm3 (140-440); Red Cell Distribution Width 15.2 % (13.2-15.2); White Blood Count 8.6 K/mm3 (4.5-11.0)
[2016-11-03 05:50] LABS: Anion Gap 16 mmol/L; BUN/Creatinine Ratio 15.71; Blood Urea Nitrogen 11 mg/dL (7-17); Carbon Dioxide 26 mmol/L (22-30); Chloride 111.7 mmol/L (98-107); Glucose 197 mg/dL (65-100); Potassium 3.5 mmol/L (3.6-5.0); Sodium 150 mmol/L (137-145)
[2016-11-03] MEDS: HEPARIN SUB-Q SCH ×3 (06:00→21:56)
[2016-11-03] MEDS: ZOFRAN IV PRN ×2 (06:03→21:55)
[2016-11-03] MEDS: MORPHINE IV PRN ×2 (06:03→21:55)
[2016-11-03 06:05] LABS: Calcium 8.7 mg/dL (8.4-10.2)
[2016-11-03] MEDS: D5LR W/KCL 20 MEQ 20 MEQ/1,000 ML BAG IV SCH (06:07)
--- NOTE | 2016-11-03 10:15 | Progress Note ---
Assessment and Plan IMP: Stable 2nd post op day. Hypernatremeia and hypochloremia PLAN:D/C montes. Change IVs to D5 1/2 NSS. Labs in am. Subjective Date of service: 11/03/16 Patient Reports: Positive: no new complaints, feels better, no flatus, no bowel movement Objective Vital Signs - 12hr 11/03/16 11/03/16 03:13 07:23 Temperature 99.4 F 99.3 F Pulse Rate [ 105 H 101 H Brachial] Respiratory 20 16 Rate Blood Pressure 155/81 133/74 [Left Arm] O2 Sat by Pulse 96 Oximetry - Abdomen soft, tender (op site), bowel sounds hypoactive, wound (dressings dry and clear) , other (NG in place with minimal drainage) - Psychiatric oriented to time, oriented to person, oriented to place, speech is normal, memory intact - Labs 11/03/16 04:46 11/03/16 04:46 Diabetes panel 11/03/16 Range/Units 04:46 Sodium 150 H (137-145) mmol/L Potassium 3.5 L (3.6-5.0) mmol/L Chloride 111.7 H (98-107) mmol/L Carbon Dioxide 26 (22-30) mmol/L BUN 11 (7-17) mg/dL Creatinine 0.7 (0.7-1.2) mg/dL Glucose 197 H (65-100) mg/dL Calcium 8.7 (8.4-10.2) mg/dL Calcium panel 11/03/16 Range/Units 04:46 Calcium 8.7 (8.4-10.2) mg/dL Pituitary panel 11/03/16 Range/Units 04:46 Sodium 150 H (137-145) mmol/L Potassium 3.5 L (3.6-5.0) mmol/L Chloride 111.7 H (98-107) mmol/L Carbon Dioxide 26 (22-30) mmol/L BUN 11 (7-17) mg/dL Creatinine 0.7 (0.7-1.2) mg/dL Glucose 197 H (65-100) mg/dL Calcium 8.7 (8.4-10.2) mg/dL Adrenal panel 11/03/16 Range/Units 04:46 Sodium 150 H (137-145) mmol/L Potassium 3.5 L (3.6-5.0) mmol/L Chloride 111.7 H (98-107) mmol/L Carbon Dioxide 26 (22-30) mmol/L BUN 11 (7-17) mg/dL Creatinine 0.7 (0.7-1.2) mg/dL Glucose 197 H (65-100) mg/dL Calcium 8.7 (8.4-10.2) mg/dL
--- NOTE | 2016-11-03 10:44 | Progress Note ---
Assessment and Plan Assessment and plan: 66-year-old woman who presented with abdominal pain found to have small bowel obstruction due to adhesions from previous surgeries, status post ex-lap and lysis of adhesions 1. SBO sp Ex lap and MEHRDAD Postop care per surgery 2. T2DM Continue sliding scale insulin 3. Hypokalemia Continue to replete iv 4. Hypernatremia Has now worsened, we'll discontinue half normal saline, switch her to D5 water History Interval history: Denies abdominal pain, denies fever denies chest pain Hospitalist Physical - Physical exam Narrative exam: General: Patient appears well in no distress HEENT: MMM, EOMI cardiac: S1-S2 heard lungs: clear to auscultation, abdomen: soft, nontender, nondistended bowel sounds positive extremities: no edema clubbing or cyanosis Skin: no rash or lesion Neuro: no focal deficit Psych: appropriate behavior and mood, cognition intact - Constitutional Vitals: Temp Pulse Resp BP Pulse Ox 99.3 F 101 H 16 133/74 96 11/03/16 07:23 11/03/16 07:23 11/03/16 07:23 11/03/16 07:23 11/03/16 03:13 Results - Labs CBC & Chem 7: 11/04/16 04:38 11/04/16 04:38 Labs: Laboratory Last Values WBC 8.6 K/mm3 (4.5-11.0) 11/03/16 04:46 RBC 3.40 M/mm3 (3.65-5.03) L 11/03/16 04:46 Hgb 10.8 gm/dl (10.1-14.3) 11/03/16 04:46 Hct 33.3 % (30.3-42.9) 11/03/16 04:46 MCV 98 fl (79-97) H 11/03/16 04:46 MCH 32 pg (28-32) 11/03/16 04:46 MCHC 32 % (30-34) 11/03/16 04:46 RDW 15.2 % (13.2-15.2) 11/03/16 04:46 Plt Count 129 K/mm3 (140-440) L 11/03/16 04:46 Lymph % (Auto) 17.8 % (13.4-35.0) 11/03/16 04:46 [place] % (Auto) 6.0 % (0.0-7.3) 11/03/16 04:46 Eos % (Auto) 0.0 % (0.0-4.3) 11/03/16 04:46 Baso % (Auto) 0.2 % (0.0-1.8) 11/03/16 04:46 Lymph # 1.5 K/mm3 (1.2-5.4) 11/03/16 04:46 [place] # 0.5 K/mm3 (0.0-0.8) 11/03/16 04:46 Eos # 0.0 K/mm3 (0.0-0.4) 11/03/16 04:46 Baso # 0.0 K/mm3 (0.0-0.1) 11/03/16 04:46 Seg Neutrophils % 76.0 % (40.0-70.0) H 11/03/16 04:46 Seg Neutrophils # 6.6 K/mm3 (1.8-7.7) 11/03/16 04:46 Sodium 150 mmol/L (137-145) H 11/03/16 04:46 Potassium 3.5 mmol/L (3.6-5.0) L 11/03/16 04:46 Chloride 111.7 mmol/L (98-107) H 11/03/16 04:46 Carbon Dioxide 26 mmol/L (22-30) 11/03/16 04:46 Anion Gap 16 mmol/L 11/03/16 04:46 BUN 11 mg/dL (7-17) 11/03/16 04:46 Creatinine 0.7 mg/dL (0.7-1.2) 11/03/16 04:46 Estimated GFR > 60 ml/min 11/03/16 04:46 BUN/Creatinine Ratio 15.71 % 11/03/16 04:46 Glucose 197 mg/dL (65-100) H 11/03/16 04:46 POC Glucose 180 (70-105) H 11/03/16 05:36 Calcium 8.7 mg/dL (8.4-10.2) 11/03/16 04:46 Magnesium 1.2 mg/dL (1.7-2.3) L 10/31/16 18:03 Total Bilirubin 0.5 mg/dL (0.1-1.2) 10/31/16 11:45 AST 30 units/L (5-40) 10/31/16 11:45 ALT 20 units/L (7-56) 10/31/16 11:45 Alkaline Phosphatase 63 units/L (35-129) 10/31/16 11:45 Total Protein 7.0 g/dL (6.3-8.2) 10/31/16 11:45 Albumin 4.5 g/dL (3.9-5) 10/31/16 11:45 Albumin/Globulin Ratio 1.8 % 10/31/16 11:45 Lipase 58 units/L (13-60) 10/31/16 11:45 Urine Color Yellow (Yellow) 10/31/16 12:07 Urine Turbidity Slightly-cloudy (Clear) 10/31/16 12:07 Urine pH 6.0 (5.0-7.0) 10/31/16 12:07 Ur Specific [place] 1.023 (1.003-1.030) 10/31/16 12:07 Urine Protein 100 mg/dl mg/dL (Negative) 10/31/16 12:07 Urine Glucose (UA) Neg mg/dL (Negative) 10/31/16 12:07 Urine Ketones Tr mg/dL (Negative) 10/31/16 12:07 Urine Blood Neg (Negative) 10/31/16 12:07 Urine Nitrite Pos (Negative) 10/31/16 12:07 Urine Bilirubin Neg (Negative) 10/31/16 12:07 Urine Urobilinogen 2.0 mg/dL (<2.0) 10/31/16 12:07 Ur Leukocyte Esterase Tr (Negative) 10/31/16 12:07 Urine WBC (Auto) 9.0 /HPF (0.0-6.0) H 10/31/16 12:07 Urine RBC (Auto) 4.0 /HPF (0.0-6.0) 10/31/16 12:07 U Epithel Cells (Auto) 4.0 /HPF (0-13.0) 10/31/16 12:07 Urine Bacteria (Auto) 4+ /HPF (Negative) 10/31/16 12:07 Urine Mucus 2+ /HPF 10/31/16 12:07
[2016-11-03] MEDS ORDERED: D5W/0.45% NACL/KCL 20 MEQ 20 MEQ/1,000 ML BAG IV SCH (11:00)
[2016-11-03] MEDS ORDERED: FLUARIX QUAD 2016-2017(36 MOS+) IM ONE (12:00)
[2016-11-03] MEDS: KCL 20 MEQ in D5W 1,000 ML IV SCH (13:01)
[2016-11-04] MEDS: KCL 20 MEQ in D5W 1,000 ML IV SCH ×2 (00:04→15:31)
[2016-11-04] MEDS: NOVOLOG SUB-Q SCH ×4 (00:07→21:05)
[2016-11-04 05:12] LABS: Basophils % (Auto) 0.3 % (0.0-1.8); Eosinophils % (Auto) 0.1 % (0.0-4.3); Hematocrit 35.5 % (30.3-42.9); Hemoglobin 11.3 gm/dl (10.1-14.3); Mean Corpuscular HGB Conc 32 % (30-34); Mean Corpuscular Hemoglobin 31 pg (28-32); Mean Corpuscular Volume 98 fl (79-97); Platelet Count 140 K/mm3 (140-440); Red Blood Count 3.62 M/mm3 (3.65-5.03); Red Cell Distribution Width 15.6 % (13.2-15.2); White Blood Count 7.7 K/mm3 (4.5-11.0)
[2016-11-04 05:25] LABS: Anion Gap 20 mmol/L; BUN/Creatinine Ratio 11.25; Blood Urea Nitrogen 9 mg/dL (7-17); Calcium 8.5 mg/dL (8.4-10.2); Carbon Dioxide 24 mmol/L (22-30); Chloride 107.6 mmol/L (98-107); Glucose 177 mg/dL (65-100); Potassium 3.9 mmol/L (3.6-5.0); Sodium 148 mmol/L (137-145)
--- NOTE | 2016-11-04 07:42 | Progress Note ---
Assessment and Plan IMP: Resolving post op ileus. Improvinf hypernatremia. PLAN: D/C NG. Ice chips po Subjective Date of service: 11/04/16 Patient Reports: Positive: no new complaints, feels better, voiding w/o difficulty, flatus, bowel movement Objective Vital Signs - 12hr 11/03/16 11/04/16 21:00 00:00 Temperature 99.3 F 98.3 F Pulse Rate [ 98 H 94 H Brachial] Respiratory 18 18 Rate Blood Pressure 150/82 134/78 [Left Arm] O2 Sat by Pulse 95 95 Oximetry - Abdomen soft, tender (minimal incisional pain), bowel sounds normal - Labs 11/04/16 04:38 11/04/16 04:38 Diabetes panel 11/04/16 Range/Units 04:38 Sodium 148 H (137-145) mmol/L Potassium 3.9 (3.6-5.0) mmol/L Chloride 107.6 H (98-107) mmol/L Carbon Dioxide 24 (22-30) mmol/L BUN 9 (7-17) mg/dL Creatinine 0.8 (0.7-1.2) mg/dL Glucose 177 H (65-100) mg/dL Calcium 8.5 (8.4-10.2) mg/dL Calcium panel 11/04/16 Range/Units 04:38 Calcium 8.5 (8.4-10.2) mg/dL Pituitary panel 11/04/16 Range/Units 04:38 Sodium 148 H (137-145) mmol/L Potassium 3.9 (3.6-5.0) mmol/L Chloride 107.6 H (98-107) mmol/L Carbon Dioxide 24 (22-30) mmol/L BUN 9 (7-17) mg/dL Creatinine 0.8 (0.7-1.2) mg/dL Glucose 177 H (65-100) mg/dL Calcium 8.5 (8.4-10.2) mg/dL Adrenal panel 11/04/16 Range/Units 04:38 Sodium 148 H (137-145) mmol/L Potassium 3.9 (3.6-5.0) mmol/L Chloride 107.6 H (98-107) mmol/L Carbon Dioxide 24 (22-30) mmol/L BUN 9 (7-17) mg/dL Creatinine 0.8 (0.7-1.2) mg/dL Glucose 177 H (65-100) mg/dL Calcium 8.5 (8.4-10.2) mg/dL
--- NOTE | 2016-11-04 12:00 | Progress Note ---
Assessment and Plan Assessment and plan: 1. SBO sp Ex lap and MEHRDAD Postop care per surgery, continue advance diet 2. T2DM Continue sliding scale insulin 3. Hypokalemia Continue to replete IV 4. Hypernatremia Continue D5W History Interval history: Denies abdominal pain, denies fever denies chest pain Hospitalist Physical - Physical exam Narrative exam: General: Patient appears well in no distress HEENT: MMM, EOMI cardiac: S1-S2 heard lungs: clear to auscultation, abdomen: soft, nontender, nondistended bowel sounds positive extremities: no edema clubbing or cyanosis Skin: no rash or lesion Neuro: no focal deficit Psych: appropriate behavior and mood, cognition intact - Constitutional Vitals: Temp Pulse Resp BP Pulse Ox 99.0 F 94 H 20 136/67 95 11/04/16 07:25 11/04/16 07:25 11/04/16 07:25 11/04/16 07:25 11/04/16 00:00 Results - Labs CBC & Chem 7: 11/04/16 04:38 11/05/16 05:03 Labs: Laboratory Last Values WBC 7.7 K/mm3 (4.5-11.0) 11/04/16 04:38 RBC 3.62 M/mm3 (3.65-5.03) L 11/04/16 04:38 Hgb 11.3 gm/dl (10.1-14.3) 11/04/16 04:38 Hct 35.5 % (30.3-42.9) 11/04/16 04:38 MCV 98 fl (79-97) H 11/04/16 04:38 MCH 31 pg (28-32) 11/04/16 04:38 MCHC 32 % (30-34) 11/04/16 04:38 RDW 15.6 % (13.2-15.2) H 11/04/16 04:38 Plt Count 140 K/mm3 (140-440) 11/04/16 04:38 Lymph % (Auto) 21.4 % (13.4-35.0) 11/04/16 04:38 [place] % (Auto) 7.9 % (0.0-7.3) H 11/04/16 04:38 Eos % (Auto) 0.1 % (0.0-4.3) 11/04/16 04:38 Baso % (Auto) 0.3 % (0.0-1.8) 11/04/16 04:38 Lymph # 1.6 K/mm3 (1.2-5.4) 11/04/16 04:38 [place] # 0.6 K/mm3 (0.0-0.8) 11/04/16 04:38 Eos # 0.0 K/mm3 (0.0-0.4) 11/04/16 04:38 Baso # 0.0 K/mm3 (0.0-0.1) 11/04/16 04:38 Seg Neutrophils % 70.3 % (40.0-70.0) H 11/04/16 04:38 Seg Neutrophils # 5.4 K/mm3 (1.8-7.7) 11/04/16 04:38 Sodium 148 mmol/L (137-145) H 11/04/16 04:38 Potassium 3.9 mmol/L (3.6-5.0) 11/04/16 04:38 Chloride 107.6 mmol/L (98-107) H 11/04/16 04:38 Carbon Dioxide 24 mmol/L (22-30) 11/04/16 04:38 Anion Gap 20 mmol/L 11/04/16 04:38 BUN 9 mg/dL (7-17) 11/04/16 04:38 Creatinine 0.8 mg/dL (0.7-1.2) 11/04/16 04:38 Estimated GFR > 60 ml/min 11/04/16 04:38 BUN/Creatinine Ratio 11.25 % 11/04/16 04:38 Glucose 177 mg/dL (65-100) H 11/04/16 04:38 POC Glucose 176 (70-105) H 11/04/16 11:40 Calcium 8.5 mg/dL (8.4-10.2) 11/04/16 04:38 Magnesium 1.2 mg/dL (1.7-2.3) L 10/31/16 18:03 Total Bilirubin 0.5 mg/dL (0.1-1.2) 10/31/16 11:45 AST 30 units/L (5-40) 10/31/16 11:45 ALT 20 units/L (7-56) 10/31/16 11:45 Alkaline Phosphatase 63 units/L (35-129) 10/31/16 11:45 Total Protein 7.0 g/dL (6.3-8.2) 10/31/16 11:45 Albumin 4.5 g/dL (3.9-5) 10/31/16 11:45 Albumin/Globulin Ratio 1.8 % 10/31/16 11:45 Lipase 58 units/L (13-60) 10/31/16 11:45 Urine Color Yellow (Yellow) 10/31/16 12:07 Urine Turbidity Slightly-cloudy (Clear) 10/31/16 12:07 Urine pH 6.0 (5.0-7.0) 10/31/16 12:07 Ur Specific [place] 1.023 (1.003-1.030) 10/31/16 12:07 Urine Protein 100 mg/dl mg/dL (Negative) 10/31/16 12:07 Urine Glucose (UA) Neg mg/dL (Negative) 10/31/16 12:07 Urine Ketones Tr mg/dL (Negative) 10/31/16 12:07 Urine Blood Neg (Negative) 10/31/16 12:07 Urine Nitrite Pos (Negative) 10/31/16 12:07 Urine Bilirubin Neg (Negative) 10/31/16 12:07 Urine Urobilinogen 2.0 mg/dL (<2.0) 10/31/16 12:07 Ur Leukocyte Esterase Tr (Negative) 10/31/16 12:07 Urine WBC (Auto) 9.0 /HPF (0.0-6.0) H 10/31/16 12:07 Urine RBC (Auto) 4.0 /HPF (0.0-6.0) 10/31/16 12:07 U Epithel Cells (Auto) 4.0 /HPF (0-13.0) 10/31/16 12:07 Urine Bacteria (Auto) 4+ /HPF (Negative) 10/31/16 12:07 Urine Mucus 2+ /HPF 10/31/16 12:07
[2016-11-04] MEDS: HEPARIN SUB-Q SCH ×3 (13:01→21:59)
[2016-11-04] MEDS: MORPHINE IV PRN ×2 (15:00→21:57)
[2016-11-05] MEDS: NOVOLOG SUB-Q SCH ×4 (00:30→18:32)
[2016-11-05 05:40] LABS: Anion Gap 17 mmol/L; Blood Urea Nitrogen 11 mg/dL (7-17); Calcium 8.2 mg/dL (8.4-10.2); Carbon Dioxide 26 mmol/L (22-30); Glucose 178 mg/dL (65-100); Potassium 3.5 mmol/L (3.6-5.0); Sodium 142 mmol/L (137-145)
[2016-11-05] MEDS: HEPARIN SUB-Q SCH ×3 (06:01→21:04)
[2016-11-05] MEDS: KCL 20 MEQ in D5W 1,000 ML IV SCH (06:06)
--- NOTE | 2016-11-05 09:22 | Progress Note ---
Assessment and Plan IMP: Resolved post op ileus. PLAN: Full liquid diet. Subjective Date of service: 11/05/16 Patient Reports: Positive: no new complaints, feels better, voiding w/o difficulty, flatus, bowel movement Objective Vital Signs - 12hr 11/05/16 11/05/16 00:00 08:00 Temperature 98.6 F 98.6 F Pulse Rate [ 83 84 Brachial] Respiratory 20 18 Rate Blood Pressure 122/74 128/73 [Left Arm] O2 Sat by Pulse 97 98 Oximetry - Abdomen soft, not tender, bowel sounds normal, wound (dressings dry and clear) - Labs 11/04/16 04:38 11/05/16 05:03 Diabetes panel 11/05/16 Range/Units 05:03 Sodium 142 (137-145) mmol/L Potassium 3.5 L (3.6-5.0) mmol/L Chloride 103.0 (98-107) mmol/L Carbon Dioxide 26 (22-30) mmol/L BUN 11 (7-17) mg/dL Creatinine 1.0 (0.7-1.2) mg/dL Glucose 178 H (65-100) mg/dL Calcium 8.2 L (8.4-10.2) mg/dL Calcium panel 11/05/16 Range/Units 05:03 Calcium 8.2 L (8.4-10.2) mg/dL Pituitary panel 11/05/16 Range/Units 05:03 Sodium 142 (137-145) mmol/L Potassium 3.5 L (3.6-5.0) mmol/L Chloride 103.0 (98-107) mmol/L Carbon Dioxide 26 (22-30) mmol/L BUN 11 (7-17) mg/dL Creatinine 1.0 (0.7-1.2) mg/dL Glucose 178 H (65-100) mg/dL Calcium 8.2 L (8.4-10.2) mg/dL Adrenal panel 11/05/16 Range/Units 05:03 Sodium 142 (137-145) mmol/L Potassium 3.5 L (3.6-5.0) mmol/L Chloride 103.0 (98-107) mmol/L Carbon Dioxide 26 (22-30) mmol/L BUN 11 (7-17) mg/dL Creatinine 1.0 (0.7-1.2) mg/dL Glucose 178 H (65-100) mg/dL Calcium 8.2 L (8.4-10.2) mg/dL
[2016-11-05] MEDS: MORPHINE IV PRN ×2 (11:29→21:04)
--- NOTE | 2016-11-05 14:30 | Progress Note ---
Assessment and Plan Assessment and plan: 66F who was admitted for SBO 1. SBO sp Ex lap and MEHRDAD Postop care per surgery, continue advance diet 2. T2DM Continue sliding scale insulin 3. Hypokalemia Continue to replete IV 4. Hypernatremia Continue D5W, improving History Interval history: Denies abdominal pain, denies fever denies chest pain, tolerating diet well Hospitalist Physical - Physical exam Narrative exam: General: Patient appears well in no distress HEENT: MMM, EOMI cardiac: S1-S2 heard lungs: clear to auscultation, abdomen: soft, nontender, nondistended bowel sounds positive extremities: no edema clubbing or cyanosis Skin: no rash or lesion Neuro: no focal deficit Psych: appropriate behavior and mood, cognition intact - Constitutional Vitals: Temp Pulse Resp BP Pulse Ox 98.6 F 84 16 128/73 98 11/05/16 08:00 11/05/16 08:00 11/05/16 11:29 11/05/16 08:00 11/05/16 08:00 Results - Labs CBC & Chem 7: 11/07/16 05:55 11/07/16 05:55 Labs: Laboratory Last Values WBC 7.7 K/mm3 (4.5-11.0) 11/04/16 04:38 RBC 3.62 M/mm3 (3.65-5.03) L 11/04/16 04:38 Hgb 11.3 gm/dl (10.1-14.3) 11/04/16 04:38 Hct 35.5 % (30.3-42.9) 11/04/16 04:38 MCV 98 fl (79-97) H 11/04/16 04:38 MCH 31 pg (28-32) 11/04/16 04:38 MCHC 32 % (30-34) 11/04/16 04:38 RDW 15.6 % (13.2-15.2) H 11/04/16 04:38 Plt Count 140 K/mm3 (140-440) 11/04/16 04:38 Lymph % (Auto) 21.4 % (13.4-35.0) 11/04/16 04:38 [place] % (Auto) 7.9 % (0.0-7.3) H 11/04/16 04:38 Eos % (Auto) 0.1 % (0.0-4.3) 11/04/16 04:38 Baso % (Auto) 0.3 % (0.0-1.8) 11/04/16 04:38 Lymph # 1.6 K/mm3 (1.2-5.4) 11/04/16 04:38 [place] # 0.6 K/mm3 (0.0-0.8) 11/04/16 04:38 Eos # 0.0 K/mm3 (0.0-0.4) 11/04/16 04:38 Baso # 0.0 K/mm3 (0.0-0.1) 11/04/16 04:38 Seg Neutrophils % 70.3 % (40.0-70.0) H 11/04/16 04:38 Seg Neutrophils # 5.4 K/mm3 (1.8-7.7) 11/04/16 04:38 Sodium 142 mmol/L (137-145) 11/05/16 05:03 Potassium 3.5 mmol/L (3.6-5.0) L 11/05/16 05:03 Chloride 103.0 mmol/L (98-107) 11/05/16 05:03 Carbon Dioxide 26 mmol/L (22-30) 11/05/16 05:03 Anion Gap 17 mmol/L 11/05/16 05:03 BUN 11 mg/dL (7-17) 11/05/16 05:03 Creatinine 1.0 mg/dL (0.7-1.2) 11/05/16 05:03 Estimated GFR > 60 ml/min 11/05/16 05:03 BUN/Creatinine Ratio 11.00 % 11/05/16 05:03 Glucose 178 mg/dL (65-100) H 11/05/16 05:03 POC Glucose 175 (70-105) H 11/05/16 11:41 Calcium 8.2 mg/dL (8.4-10.2) L 11/05/16 05:03 Magnesium 1.2 mg/dL (1.7-2.3) L 10/31/16 18:03 Total Bilirubin 0.5 mg/dL (0.1-1.2) 10/31/16 11:45 AST 30 units/L (5-40) 10/31/16 11:45 ALT 20 units/L (7-56) 10/31/16 11:45 Alkaline Phosphatase 63 units/L (35-129) 10/31/16 11:45 Total Protein 7.0 g/dL (6.3-8.2) 10/31/16 11:45 Albumin 4.5 g/dL (3.9-5) 10/31/16 11:45 Albumin/Globulin Ratio 1.8 % 10/31/16 11:45 Lipase 58 units/L (13-60) 10/31/16 11:45 Urine Color Yellow (Yellow) 10/31/16 12:07 Urine Turbidity Slightly-cloudy (Clear) 10/31/16 12:07 Urine pH 6.0 (5.0-7.0) 10/31/16 12:07 Ur Specific [place] 1.023 (1.003-1.030) 10/31/16 12:07 Urine Protein 100 mg/dl mg/dL (Negative) 10/31/16 12:07 Urine Glucose (UA) Neg mg/dL (Negative) 10/31/16 12:07 Urine Ketones Tr mg/dL (Negative) 10/31/16 12:07 Urine Blood Neg (Negative) 10/31/16 12:07 Urine Nitrite Pos (Negative) 10/31/16 12:07 Urine Bilirubin Neg (Negative) 10/31/16 12:07 Urine Urobilinogen 2.0 mg/dL (<2.0) 10/31/16 12:07 Ur Leukocyte Esterase Tr (Negative) 10/31/16 12:07 Urine WBC (Auto) 9.0 /HPF (0.0-6.0) H 10/31/16 12:07 Urine RBC (Auto) 4.0 /HPF (0.0-6.0) 10/31/16 12:07 U Epithel Cells (Auto) 4.0 /HPF (0-13.0) 10/31/16 12:07 Urine Bacteria (Auto) 4+ /HPF (Negative) 10/31/16 12:07 Urine Mucus 2+ /HPF 10/31/16 12:07
[2016-11-05] MEDS: K-DUR PO SCH (17:46)
[2016-11-06] MEDS: NOVOLOG SUB-Q SCH ×4 (01:29→18:00)
[2016-11-06] MEDS: HEPARIN SUB-Q SCH ×3 (06:15→22:30)
--- NOTE | 2016-11-06 08:12 | Query- Renal Failure ---
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 Questions asked do not imply a particular answer is desired or expected. We greatly appreciate your clarification on this issue. Clinical Documentation States: 66 year old female was admitted on 11/01/26. The Patient was diagnosed with small bowel obstruction, and underwent an exploratory laparotomy, lysis of adhesions, small bowel enterorrhapy. The progress note (11/05/16) states " hypokalemia, hypernatremia " Clinical Findings Show: 10/31/16 11/01/16 11/05/16 Creatinine: 0.6 0.5 1.0 Please clarify if you mean: Acute Renal Failure with or due to: [ ] Tubular Necrosis [ ] Medullary Necrosis [x ] Vasomotor Nephropathy [ ] Shock Kidney [ ] Tubular Nephrosis [ ] Renal Tubular Stasis [ ] Cortical Necrosis [ ] Acute Renal Failure (unspecified) [ ] Lower Tubular Nephrosis [ ] Other: [ ] Not Applicable Present on Admission: [ ] Yes (Y) [ ] Clinically undeterminable (W) [ x] No (N) Please also document response in your Progress Notes and/or Discharge Summary and indicate if the condition was present on admission. ILYA
[2016-11-06] MEDS: K-DUR PO SCH (10:05)
--- NOTE | 2016-11-06 10:43 | Progress Note ---
Assessment and Plan IMP: Gastro-esophagitis. PLAN: Pepcid 20 mg po now and q12 hours. Subjective Date of service: 11/06/16 Patient Reports: Positive: voiding w/o difficulty, flatus, bowel movement, other (reports indigestionnad heart burn after took the KCl po.) Objective Vital Signs - 12hr 11/05/16 11/06/16 23:09 07:00 Temperature 99.0 F 97.1 F L Pulse Rate [ 87 91 H Brachial] Respiratory 20 18 Rate Blood Pressure 153/84 142/74 [Right Arm] O2 Sat by Pulse 98 98 Oximetry - Abdomen soft, bowel sounds normal, wound (dressings dry, clear and healing well) - Labs 11/04/16 04:38 11/05/16 05:03
[2016-11-06] MEDS: PEPCID PO SCH ×2 (12:00→22:56)
--- NOTE | 2016-11-06 15:29 | Progress Note ---
Assessment and Plan Assessment and plan: 66F who was admitted for SBO 1. SBO sp Ex lap and MEHRDAD Postop care per surgery, continue advance diet given bloating and diarrhea, will check c diff, start PPI, and maalox prn bloating 2. T2DM Continue sliding scale insulin 3. Hypokalemia Continue to replete IV, improving 4. Hypernatremia Resolved, cw IVFluids since she has anorexia today History Interval history: today she is c/o abdominal bloating, nausea, watery diarrhea and lack of appetite Hospitalist Physical - Physical exam Narrative exam: General: Patient appears well in no distress HEENT: MMM, EOMI cardiac: S1-S2 heard lungs: clear to auscultation, abdomen: soft, nontender, distended, typanitic, bowel sounds positive extremities: no edema clubbing or cyanosis Skin: no rash or lesion Neuro: no focal deficit Psych: appropriate behavior and mood, cognition intact - Constitutional Vitals: Temp Pulse Resp BP Pulse Ox 97.1 F L 91 H 18 142/74 98 11/06/16 07:00 11/06/16 07:00 11/06/16 07:00 11/06/16 07:00 11/06/16 07:00 Results - Labs CBC & Chem 7: 11/07/16 05:55 11/07/16 05:55 Labs: Laboratory Last Values WBC 7.7 K/mm3 (4.5-11.0) 11/04/16 04:38 RBC 3.62 M/mm3 (3.65-5.03) L 11/04/16 04:38 Hgb 11.3 gm/dl (10.1-14.3) 11/04/16 04:38 Hct 35.5 % (30.3-42.9) 11/04/16 04:38 MCV 98 fl (79-97) H 11/04/16 04:38 MCH 31 pg (28-32) 11/04/16 04:38 MCHC 32 % (30-34) 11/04/16 04:38 RDW 15.6 % (13.2-15.2) H 11/04/16 04:38 Plt Count 140 K/mm3 (140-440) 11/04/16 04:38 Lymph % (Auto) 21.4 % (13.4-35.0) 11/04/16 04:38 [place] % (Auto) 7.9 % (0.0-7.3) H 11/04/16 04:38 Eos % (Auto) 0.1 % (0.0-4.3) 11/04/16 04:38 Baso % (Auto) 0.3 % (0.0-1.8) 11/04/16 04:38 Lymph # 1.6 K/mm3 (1.2-5.4) 11/04/16 04:38 [place] # 0.6 K/mm3 (0.0-0.8) 11/04/16 04:38 Eos # 0.0 K/mm3 (0.0-0.4) 11/04/16 04:38 Baso # 0.0 K/mm3 (0.0-0.1) 11/04/16 04:38 Seg Neutrophils % 70.3 % (40.0-70.0) H 11/04/16 04:38 Seg Neutrophils # 5.4 K/mm3 (1.8-7.7) 11/04/16 04:38 Sodium 142 mmol/L (137-145) 11/05/16 05:03 Potassium 3.5 mmol/L (3.6-5.0) L 11/05/16 05:03 Chloride 103.0 mmol/L (98-107) 11/05/16 05:03 Carbon Dioxide 26 mmol/L (22-30) 11/05/16 05:03 Anion Gap 17 mmol/L 11/05/16 05:03 BUN 11 mg/dL (7-17) 11/05/16 05:03 Creatinine 1.0 mg/dL (0.7-1.2) 11/05/16 05:03 Estimated GFR > 60 ml/min 11/05/16 05:03 BUN/Creatinine Ratio 11.00 % 11/05/16 05:03 Glucose 178 mg/dL (65-100) H 11/05/16 05:03 POC Glucose 177 (70-105) H 11/06/16 11:43 Calcium 8.2 mg/dL (8.4-10.2) L 11/05/16 05:03 Magnesium 1.2 mg/dL (1.7-2.3) L 10/31/16 18:03 Total Bilirubin 0.5 mg/dL (0.1-1.2) 10/31/16 11:45 AST 30 units/L (5-40) 10/31/16 11:45 ALT 20 units/L (7-56) 10/31/16 11:45 Alkaline Phosphatase 63 units/L (35-129) 10/31/16 11:45 Total Protein 7.0 g/dL (6.3-8.2) 10/31/16 11:45 Albumin 4.5 g/dL (3.9-5) 10/31/16 11:45 Albumin/Globulin Ratio 1.8 % 10/31/16 11:45 Lipase 58 units/L (13-60) 10/31/16 11:45 Urine Color Yellow (Yellow) 10/31/16 12:07 Urine Turbidity Slightly-cloudy (Clear) 10/31/16 12:07 Urine pH 6.0 (5.0-7.0) 10/31/16 12:07 Ur Specific [place] 1.023 (1.003-1.030) 10/31/16 12:07 Urine Protein 100 mg/dl mg/dL (Negative) 10/31/16 12:07 Urine Glucose (UA) Neg mg/dL (Negative) 10/31/16 12:07 Urine Ketones Tr mg/dL (Negative) 10/31/16 12:07 Urine Blood Neg (Negative) 10/31/16 12:07 Urine Nitrite Pos (Negative) 10/31/16 12:07 Urine Bilirubin Neg (Negative) 10/31/16 12:07 Urine Urobilinogen 2.0 mg/dL (<2.0) 10/31/16 12:07 Ur Leukocyte Esterase Tr (Negative) 10/31/16 12:07 Urine WBC (Auto) 9.0 /HPF (0.0-6.0) H 10/31/16 12:07 Urine RBC (Auto) 4.0 /HPF (0.0-6.0) 10/31/16 12:07 U Epithel Cells (Auto) 4.0 /HPF (0-13.0) 10/31/16 12:07 Urine Bacteria (Auto) 4+ /HPF (Negative) 10/31/16 12:07 Urine Mucus 2+ /HPF 10/31/16 12:07
[2016-11-06] MEDS: ALUM-MAG HYDROX-SIMETH 200-200-20MG/5ML PO PRN ×2 (16:00→23:03)
[2016-11-06] MEDS: MORPHINE IV PRN ×2 (16:00→23:02)
[2016-11-06] MEDS: NS 0.45/KCL 20MEQ 20 MEQ/1,000 ML BAG IV SCH (16:30)
[2016-11-07] MEDS: NS 0.45/KCL 20MEQ 20 MEQ/1,000 ML BAG IV SCH (01:54)
[2016-11-07 06:21] LABS: Hematocrit 26.8 % (30.3-42.9); Hemoglobin 8.9 gm/dl (10.1-14.3); Mean Corpuscular HGB Conc 33 % (30-34); Mean Corpuscular Hemoglobin 32 pg (28-32); Mean Corpuscular Volume 96 fl (79-97); Platelet Count 210 K/mm3 (140-440); Red Blood Count 2.79 M/mm3 (3.65-5.03); Red Cell Distribution Width 14.1 % (13.2-15.2); White Blood Count 5.8 K/mm3 (4.5-11.0)
[2016-11-07] MEDS: NOVOLOG SUB-Q SCH ×3 (06:30→14:04)
[2016-11-07] MEDS: HEPARIN SUB-Q SCH ×3 (06:30→22:30)
[2016-11-07 06:35] LABS: Anion Gap 17 mmol/L; Blood Urea Nitrogen 11 mg/dL (7-17); Calcium 8.5 mg/dL (8.4-10.2); Carbon Dioxide 24 mmol/L (22-30); Chloride 103.9 mmol/L (98-107); Glucose 136 mg/dL (65-100); Potassium 4.6 mmol/L (3.6-5.0); Sodium 140 mmol/L (137-145)
[2016-11-07 07:28] LABS: Basophils % (Manual) 0 % (0.0-1.8); Blastocytes % (Manual) 0 %
[2016-11-07 07:30] LABS: Anisocytosis Few; Diff Status Complete
[2016-11-07] MEDS ORDERED: NACL 0.45% 1000 ML 1,000 ML IV SCH (08:00)
--- NOTE | 2016-11-07 08:46 | Progress Note ---
Assessment and Plan IMP: Resolved post op ileus. PLAN: GI soft diet. D/C ivette and apply steri strps. Home per Internal Medicine. Subjective Date of service: 11/07/16 Patient Reports: Positive: no new complaints, feels better, tolerating liquids well, voiding w/o difficulty, flatus, bowel movement Objective Vital Signs - 12hr 11/06/16 11/06/16 23:02 23:32 Respiratory 20 22 Rate - Abdomen soft, not tender, bowel sounds normal, wound (dry, clear and healing well.) - Labs 11/07/16 05:55 11/07/16 05:55 Diabetes panel 11/07/16 Range/Units 05:55 Sodium 140 (137-145) mmol/L Potassium 4.6 D (3.6-5.0) mmol/L Chloride 103.9 (98-107) mmol/L Carbon Dioxide 24 (22-30) mmol/L BUN 11 (7-17) mg/dL Creatinine 1.0 (0.7-1.2) mg/dL Glucose 136 H (65-100) mg/dL Calcium 8.5 (8.4-10.2) mg/dL Calcium panel 11/07/16 Range/Units 05:55 Calcium 8.5 (8.4-10.2) mg/dL Pituitary panel 11/07/16 Range/Units 05:55 Sodium 140 (137-145) mmol/L Potassium 4.6 D (3.6-5.0) mmol/L Chloride 103.9 (98-107) mmol/L Carbon Dioxide 24 (22-30) mmol/L BUN 11 (7-17) mg/dL Creatinine 1.0 (0.7-1.2) mg/dL Glucose 136 H (65-100) mg/dL Calcium 8.5 (8.4-10.2) mg/dL Adrenal panel 11/07/16 Range/Units 05:55 Sodium 140 (137-145) mmol/L Potassium 4.6 D (3.6-5.0) mmol/L Chloride 103.9 (98-107) mmol/L Carbon Dioxide 24 (22-30) mmol/L BUN 11 (7-17) mg/dL Creatinine 1.0 (0.7-1.2) mg/dL Glucose 136 H (65-100) mg/dL Calcium 8.5 (8.4-10.2) mg/dL
[2016-11-07] MEDS: PEPCID PO SCH ×2 (10:00→22:35)
[2016-11-07] MEDS ORDERED: PROTONIX IV SCH (10:00)
[2016-11-07] MEDS: MORPHINE IV PRN (10:15)
--- NOTE | 2016-11-07 15:44 | Progress Note ---
Assessment and Plan Assessment and plan: 66F who was admitted for SBO 1. SBO sp Ex lap and MEHRDAD Postop care per surgery, continue to advance diet had some watery BMs, but c diff negative and now resolving bloating and gas improved with maalox 2. T2DM Continue sliding scale insulin 3. Hypokalemia resolved with repletion 4. Hypernatremia resolved with IVF ivette were removed by surgery team today, tentative dc home in am, if she continues to improve History Interval history: abdominal bloating is improved today, diarrhea is also improving, she feels better today, denies nausea Hospitalist Physical - Physical exam Narrative exam: General: Patient appears well in no distress HEENT: MMM, EOMI cardiac: S1-S2 heard lungs: clear to auscultation, abdomen: soft, nontender, mild distension, bowel sounds positive extremities: no edema clubbing or cyanosis Skin: no rash or lesion Neuro: no focal deficit Psych: appropriate behavior and mood, cognition intact - Constitutional Vitals: Temp Pulse Resp BP Pulse Ox 98.1 F 104 H 18 133/64 95 11/07/16 08:00 11/07/16 08:00 11/07/16 08:00 11/07/16 08:00 11/07/16 08:00 Results - Labs CBC & Chem 7: 11/07/16 05:55 11/07/16 05:55 Labs: Laboratory Last Values WBC 5.8 K/mm3 (4.5-11.0) 11/07/16 05:55 RBC 2.79 M/mm3 (3.65-5.03) L 11/07/16 05:55 Hgb 8.9 gm/dl (10.1-14.3) L 11/07/16 05:55 Hct 26.8 % (30.3-42.9) L 11/07/16 05:55 MCV 96 fl (79-97) 11/07/16 05:55 MCH 32 pg (28-32) 11/07/16 05:55 MCHC 33 % (30-34) 11/07/16 05:55 RDW 14.1 % (13.2-15.2) 11/07/16 05:55 Plt Count 210 K/mm3 (140-440) 11/07/16 05:55 Lymph % (Auto) 21.4 % (13.4-35.0) 11/04/16 04:38 [place] % (Auto) Usability Specialist 11/07/16 05:55 Eos % (Auto) 0.1 % (0.0-4.3) 11/04/16 04:38 Baso % (Auto) 0.3 % (0.0-1.8) 11/04/16 04:38 Lymph # 1.6 K/mm3 (1.2-5.4) 11/04/16 04:38 [place] # 0.6 K/mm3 (0.0-0.8) 11/04/16 04:38 Eos # 0.0 K/mm3 (0.0-0.4) 11/04/16 04:38 Baso # 0.0 K/mm3 (0.0-0.1) 11/04/16 04:38 Add Manual Diff Complete 11/07/16 05:55 Total Counted 100 11/07/16 05:55 Seg Neutrophils % 70.3 % (40.0-70.0) H 11/04/16 04:38 Seg Neuts % (Manual) 49.0 % (40.0-70.0) 11/07/16 05:55 Band Neutrophils % 0 % 11/07/16 05:55 Lymphocytes % (Manual) 36.0 % (13.4-35.0) H 11/07/16 05:55 Reactive Lymphs % (Man) 0 % 11/07/16 05:55 Monocytes % (Manual) 14.0 % (0.0-7.3) H 11/07/16 05:55 Eosinophils % (Manual) 1.0 % (0.0-4.3) 11/07/16 05:55 Basophils % (Manual) 0 % (0.0-1.8) 11/07/16 05:55 Metamyelocytes % 0 % 11/07/16 05:55 Myelocytes % 0 % 11/07/16 05:55 Promyelocytes % 0 % 11/07/16 05:55 Blast Cells % 0 % 11/07/16 05:55 Nucleated RBC % Not Reportable 11/07/16 05:55 Seg Neutrophils # 5.4 K/mm3 (1.8-7.7) 11/04/16 04:38 Seg Neutrophils # Man 2.8 K/mm3 (1.8-7.7) 11/07/16 05:55 Band Neutrophils # 0.0 K/mm3 11/07/16 05:55 Lymphocytes # (Manual) 2.1 K/mm3 (1.2-5.4) 11/07/16 05:55 Abs React Lymphs (Man) 0.0 K/mm3 11/07/16 05:55 Monocytes # (Manual) 0.8 K/mm3 (0.0-0.8) 11/07/16 05:55 Eosinophils # (Manual) 0.1 K/mm3 (0.0-0.4) 11/07/16 05:55 Basophils # (Manual) 0.0 K/mm3 (0.0-0.1) 11/07/16 05:55 Metamyelocytes # 0.0 K/mm3 11/07/16 05:55 Myelocytes # 0.0 K/mm3 11/07/16 05:55 Promyelocytes # 0.0 K/mm3 11/07/16 05:55 Blast Cells # 0.0 K/mm3 11/07/16 05:55 WBC Morphology Not Reportable 11/07/16 05:55 Hypersegmented Neuts Not Reportable 11/07/16 05:55 Hyposegmented Neuts Not Reportable 11/07/16 05:55 Hypogranular Neuts Not Reportable 11/07/16 05:55 Smudge Cells Not Reportable 11/07/16 05:55 Toxic Granulation Not Reportable 11/07/16 05:55 Toxic Vacuolation Not Reportable 11/07/16 05:55 Dohle Bodies Not Reportable 11/07/16 05:55 Pelger-Huet Anomaly Not Reportable 11/07/16 05:55 Leodan Rods Not Reportable 11/07/16 05:55 Platelet Estimate Appears normal 11/07/16 05:55 Clumped Platelets Not Reportable 11/07/16 05:55 Plt Clumps, EDTA Not Reportable 11/07/16 05:55 Large Platelets Not Reportable 11/07/16 05:55 Giant Platelets Not Reportable 11/07/16 05:55 Platelet Satelliting Not Reportable 11/07/16 05:55 Plt Morphology Comment Not Reportable 11/07/16 05:55 RBC Morphology Not Reportable 11/07/16 05:55 Dimorphic RBCs Not Reportable 11/07/16 05:55 Polychromasia Not Reportable 11/07/16 05:55 Hypochromasia Not Reportable 11/07/16 05:55 Poikilocytosis Not Reportable 11/07/16 05:55 Anisocytosis Few 11/07/16 05:55 Microcytosis Not Reportable 11/07/16 05:55 Macrocytosis Not Reportable 11/07/16 05:55 Spherocytes Not Reportable 11/07/16 05:55 Pappenheimer Bodies Not Reportable 11/07/16 05:55 Sickle Cells Not Reportable 11/07/16 05:55 Target Cells Not Reportable 11/07/16 05:55 Tear Drop Cells Not Reportable 11/07/16 05:55 Ovalocytes Not Reportable 11/07/16 05:55 Helmet Cells Not Reportable 11/07/16 05:55 [place] Bodies Not Reportable 11/07/16 05:55 Wise Rings Not Reportable 11/07/16 05:55 Shira Cells Not Reportable 11/07/16 05:55 Bite Cells Not Reportable 11/07/16 05:55 Crenated Cell Not Reportable 11/07/16 05:55 Elliptocytes Not Reportable 11/07/16 05:55 Acanthocytes (Spur) Not Reportable 11/07/16 05:55 Rouleaux Not Reportable 11/07/16 05:55 Hemoglobin C Crystals Not Reportable 11/07/16 05:55 Schistocytes Not Reportable 11/07/16 05:55 Malaria parasites Not Reportable 11/07/16 05:55 Chip Bodies Not Reportable 11/07/16 05:55 Hem Pathologist Commnt No 11/07/16 05:55 Sodium 140 mmol/L (137-145) 11/07/16 05:55 Potassium 4.6 mmol/L (3.6-5.0) D 11/07/16 05:55 Chloride 103.9 mmol/L (98-107) 11/07/16 05:55 Carbon Dioxide 24 mmol/L (22-30) 11/07/16 05:55 Anion Gap 17 mmol/L 11/07/16 05:55 BUN 11 mg/dL (7-17) 11/07/16 05:55 Creatinine 1.0 mg/dL (0.7-1.2) 11/07/16 05:55 Estimated GFR > 60 ml/min 11/07/16 05:55 BUN/Creatinine Ratio 11.00 % 11/07/16 05:55 Glucose 136 mg/dL (65-100) H 11/07/16 05:55 POC Glucose 138 (70-105) H 11/07/16 06:04 Calcium 8.5 mg/dL (8.4-10.2) 11/07/16 05:55 Magnesium 1.2 mg/dL (1.7-2.3) L 10/31/16 18:03 Total Bilirubin 0.5 mg/dL (0.1-1.2) 10/31/16 11:45 AST 30 units/L (5-40) 10/31/16 11:45 ALT 20 units/L (7-56) 10/31/16 11:45 Alkaline Phosphatase 63 units/L (35-129) 10/31/16 11:45 Total Protein 7.0 g/dL (6.3-8.2) 10/31/16 11:45 Albumin 4.5 g/dL (3.9-5) 10/31/16 11:45 Albumin/Globulin Ratio 1.8 % 10/31/16 11:45 Lipase 58 units/L (13-60) 10/31/16 11:45 Urine Color Yellow (Yellow) 10/31/16 12:07 Urine Turbidity Slightly-cloudy (Clear) 10/31/16 12:07 Urine pH 6.0 (5.0-7.0) 10/31/16 12:07 Ur Specific [place] 1.023 (1.003-1.030) 10/31/16 12:07 Urine Protein 100 mg/dl mg/dL (Negative) 10/31/16 12:07 Urine Glucose (UA) Neg mg/dL (Negative) 10/31/16 12:07 Urine Ketones Tr mg/dL (Negative) 10/31/16 12:07 Urine Blood Neg (Negative) 10/31/16 12:07 Urine Nitrite Pos (Negative) 10/31/16 12:07 Urine Bilirubin Neg (Negative) 10/31/16 12:07 Urine Urobilinogen 2.0 mg/dL (<2.0) 10/31/16 12:07 Ur Leukocyte Esterase Tr (Negative) 10/31/16 12:07 Urine WBC (Auto) 9.0 /HPF (0.0-6.0) H 10/31/16 12:07 Urine RBC (Auto) 4.0 /HPF (0.0-6.0) 10/31/16 12:07 U Epithel Cells (Auto) 4.0 /HPF (0-13.0) 10/31/16 12:07 Urine Bacteria (Auto) 4+ /HPF (Negative) 10/31/16 12:07 Urine Mucus 2+ /HPF 10/31/16 12:07
[2016-11-07] MEDS: ALUM-MAG HYDROX-SIMETH 200-200-20MG/5ML PO PRN (16:00)
[2016-11-08] MEDS: CATAPRES-TTS PATCH TD SCH
[2016-11-08] MEDS: NOVOLOG SUB-Q SCH (00:09)
--- NOTE | 2016-11-08 07:52 | Discharge Summary ---
Providers - Providers Date of Admission: 10/31/16 18:36 Attending physician: NATHAN NIELSON MD Primary care physician: PECAN PICKER Hospitalization Condition: Good Disposition: DISCHARGED TO HOME OR SELFCARE Time spent for discharge: 35 minutes Core Measure Documentation - Palliative Care Palliative Care/ Comfort Measures: Not Applicable - Core Measures Any of the following diagnoses?: none Exam - Constitutional Vitals: Temp Pulse Resp BP Pulse Ox 98.7 F 91 H 20 158/80 98 11/07/16 22:46 11/08/16 00:00 11/07/16 22:46 11/08/16 00:00 11/07/16 22:46 General appearance: Present: no acute distress, well-nourished - EENT Eyes: Present: PERRL ENT: hearing intact, clear oral mucosa - Neck Neck: Present: supple, normal ROM - Respiratory Respiratory effort: normal Respiratory: bilateral: CTA - Cardiovascular Heart Sounds: Present: S1 & S2. Absent: rub, click - Extremities Extremities: pulses symmetrical, No edema Peripheral Pulses: within normal limits - Abdominal General gastrointestinal: Present: soft, non-tender, non-distended, normal bowel sounds Female genitourinary: Present: normal - Integumentary Integumentary: Present: clear, warm, dry - Musculoskeletal Musculoskeletal: gait normal, strength equal bilaterally - Psychiatric Psychiatric: appropriate mood/affect, intact judgment & insight - Neurologic Neurologic: CNII-XII intact, moves all extremities Plan Follow up with: PRIMARY CARE, [Primary Care Provider] - 3-5 Days Prescriptions: Antacid [Alum-Mag Hydrox-Simeth [id number]] 30 ml PO Q4H PRN #1 bottle PRN Reason: Indigestion Ondansetron [Zofran Odt] 4 mg PO Q6H PRN #30 tab.rapdis PRN Reason: Nausea And Vomiting oxyCODONE /ACETAMINOPHEN [Percocet 5/325 mg] 1 tab PO Q6HR PRN #30 tablet PRN Reason: Pain Pantoprazole [Protonix TAB] 20 mg PO QDAY #30 tablet.
[2016-11-08] MEDS ORDERED: PROTONIX PO SCH (10:00)
[2016-11-08] MEDS: PEPCID PO SCH (10:05)
[2016-11-08] MEDS ORDERED: IMODIUM PO PRN (13:35)
[2016-11-08] MEDS: HEPARIN SUB-Q SCH (14:00)
[2016-11-08 16:15] VITALS: BP 151/75
== END 2016-11-08 18:38 | disposition home or self-care (01) | DRG 329 ==
LOC: ED 10:35 → 2B-SURG 18:36
PROVIDERS: ADMIT Internal Medicine; ATTEND Internal Medicine
PROC: 0DQ80ZZ Repair Small Intestine, Open Approach (ICD-10-PCS; principal; 2016-11-01)
PROC: 0WJP0ZZ Inspection of Gastrointestinal Tract, Open Approach (ICD-10-PCS; 2016-11-01)
PROC: 0DN80ZZ Release Small Intestine, Open Approach (ICD-10-PCS; 2016-11-01)
DX: K56.69 Other intestinal obstruction (principal); N17.0 Acute kidney failure with tubular necrosis; I10 Essential (primary) hypertension; E11.9 Type 2 diabetes mellitus without complications; E87.6 Hypokalemia; K20.8 Other esophagitis; K66.0 Peritoneal adhesions (postprocedural) (postinfection); E87.0 Hyperosmolality and hypernatremia; E78.5 Hyperlipidemia, unspecified; E78.00 Pure hypercholesterolemia, unspecified; Z60.2 Problems related to living alone; F10.20 Alcohol dependence, uncomplicated; E87.8 Other disorders of electrolyte and fluid balance, not elsewhere classified; Z79.82 Long term (current) use of aspirin; Z90.710 Acquired absence of both cervix and uterus; Z88.6 Allergy status to analgesic agent; Z88.2 Allergy status to sulfonamides; Z88.8 Allergy status to other drugs, medicaments and biological substances; Z82.49 Family history of ischemic heart disease and other diseases of the circulatory system; Z79.4 Long term (current) use of insulin
CPT/HCPCS: 36415; 74177; 74250; 80048; 80053; 81001; 82962; 83690; 83735; 85007; 85025; 87493; 90686; 93005; 93010; 96372; 96374; 96375; C9113; J0330; J0500; J1100; J1170; J1644; J1815; J2270; J2405; J2543; J2704; J3475; J3480; J7030; J7070; J7120; J7121; Q9963; Q9967

== ENCOUNTER 2019-05-14 08:57 | Emergency (ER) | payer MEDICARE ==
[2019-05-14] MEDS ORDERED: ZOFRAN IV ONE (09:51)
[2019-05-14] MEDS ORDERED: NACL 0.9% 1000 ML 1,000 ML IV ONE (09:51)
[2019-05-14 09:55] LABS: Basophils % (Auto) 0.3 % (0.0-1.8); Eosinophils # (Auto) 0.1 K/mm3 (0.0-0.4); Eosinophils % (Auto) 1.6 % (0.0-4.3); Hematocrit 34.1 % (30.3-42.9); Hemoglobin 11.3 gm/dl (10.1-14.3); Lymphocytes # (Auto) 1.9 K/mm3 (1.2-5.4); Lymphocytes % (Auto) 27.8 % (13.4-35.0); Mean Corpuscular HGB Conc 33 % (30-34); Mean Corpuscular Volume 98 fl (79-97); Monocytes # (Auto) 0.6 K/mm3 (0.0-0.8); Monocytes % (Auto) 9.3 % (0.0-7.3); Platelet Count 220 K/mm3 (140-440); Red Cell Distribution Width 15.1 % (13.2-15.2)
--- NOTE | 2019-05-14 10:04 | Emergency Department Report ---
ED Abdominal Pain HPI - General Chief Complaint: Abdominal Pain Stated Complaint: STOMACH PAIN Time Seen by Provider: 05/14/19 09:43 Source: patient Mode of arrival: Ambulatory Limitations: No Limitations - History of Present Illness Initial Comments: Patient is a 69-year-old female presents emergency room with complaints of generalized abdominal pain and cramping that began two days ago. she states three nights ago she believes she may have eaten a spoiled tomato. She states the next morning when she woke up she began to have diarrhea, abdominal pain, increased gas. She states she has not had a bowel movement since 2 days ago. Has associated nausea. Denies any emesis. Denies any recent antibiotics. She is tolerating by mouth intake. she denies any melena or hematochezia. She has past medical history of high blood pressure and diabetes. Patient states approximately 2 years ago she had a bowel obstruction with exploratory laparoscopy. She has a past abdominal surgical history of 3 and hysterectomy. - Related Data Home Medications Medication Instructions Recorded Confirmed Last Taken Rosuvastatin Calcium 10 mg PO DAILY 10/31/16 10/31/16 10/30/16 Previous Rx's Medication Instructions Recorded Last Taken Type amLODIPine [Norvasc] 10 mg PO DAILY #30 tab 10/26/14 10/31/16 Rx Antacid [Alum-Mag Hydrox-Simeth 30 ml PO Q4H PRN #1 bottle 11/07/16 Unknown Rx [id number]] Ondansetron [Zofran Odt] 4 mg PO Q6H PRN #30 tab.rapdis 11/07/16 Unknown Rx Pantoprazole [Protonix TAB] 20 mg PO QDAY #30 tablet. 11/07/16 Unknown Rx oxyCODONE /ACETAMINOPHEN [Percocet 1 tab PO Q6HR PRN #30 tablet 11/07/16 Unknown Rx 5/325 mg] Loperamide [Imodium] 2 mg PO Q6H PRN #60 capsule 11/08/16 Unknown Rx Ondansetron [Zofran Odt] 4 mg PO Q8HR PRN #14 tab.rapdis 05/14/19 Unknown Rx cephALEXin [Keflex] 500 mg PO BID 7 Days #14 cap 05/14/19 Unknown Rx Allergies Allergy/AdvReac Type Severity Reaction Status Date / Time acetaminophen [From Tylenol] Allergy Swelling Verified 05/21/13 13:33 aspirin Allergy Hives Verified 10/31/16 11:10 [From Goody's Headache Powder] caffeine Allergy Hives Verified 10/31/16 11:10 [From Goody's Headache Powder] potassium Allergy Hives Verified 10/31/16 11:10 [From Goody's Headache Powder] Sulfa (Sulfonamide Allergy Itching Verified 05/21/13 13:33 Antibiotics) lisinopril AdvReac Angioedema Verified 10/26/14 06:07 ED Review of Systems ROS: Stated complaint: STOMACH PAIN Other details as noted in HPI Comment: All other systems reviewed and negative ED Past Medical Hx - Past Medical History Hx Hypertension: Yes (HLD) Hx Diabetes: Yes - Surgical History Additional Surgical History: broken fibula 04, x 3 - Social History Smoking Status: Never Smoker Substance Use Type: Alcohol - Medications Home Medications: Home Medications Medication Instructions Recorded Confirmed Last Taken Type amLODIPine [Norvasc] 10 mg PO DAILY #30 tab 10/26/14 10/31/16 10/31/16 Rx Rosuvastatin Calcium 10 mg PO DAILY 10/31/16 10/31/16 10/30/16 History Antacid [Alum-Mag Hydrox-Simeth 30 ml PO Q4H PRN #1 bottle 11/07/16 Unknown Rx [id number]/[id number]] Ondansetron [Zofran Odt] 4 mg PO Q6H PRN #30 tab.rapdis 11/07/16 Unknown Rx Pantoprazole [Protonix TAB] 20 mg PO QDAY #30 tablet.dr 11/07/16 Unknown Rx oxyCODONE /ACETAMINOPHEN [Percocet 1 tab PO Q6HR PRN #30 tablet 11/07/16 Unknown Rx 5/325 mg] Loperamide [Imodium] 2 mg PO Q6H PRN #60 capsule 11/08/16 Unknown Rx Ondansetron [Zofran Odt] 4 mg PO Q8HR PRN #14 tab.rapdis 05/14/19 Unknown Rx cephALEXin [Keflex] 500 mg PO BID 7 Days #14 cap 05/14/19 Unknown Rx ED Physical Exam - General Limitations: No Limitations General appearance: alert, in no apparent distress - Head Head exam: Present: atraumatic, normocephalic - Eye Eye exam: Present: normal appearance - ENT ENT exam: Present: mucous membranes moist - Respiratory Respiratory exam: Present: normal lung sounds bilaterally. Absent: respiratory distress, wheezes, rales, rhonchi, stridor, chest wall tenderness, accessory muscle use, decreased breath sounds, prolonged expiratory - Cardiovascular Cardiovascular Exam: Present: regular rate, normal rhythm, normal heart sounds. Absent: systolic murmur, diastolic murmur, rubs, gallop - GI/Abdominal GI/Abdominal exam: Present: soft, tenderness (mild generalized TTP), normal bowel sounds, other (no peritoneal signs ). Absent: distended, guarding, rebound, rigid - Back Exam Back exam: Absent: CVA tenderness (R), CVA tenderness (L) - Neurological Exam Neurological exam: Present: alert, oriented X3 - Psychiatric Psychiatric exam: Present: normal affect, normal mood - Skin Skin exam: Present: warm, dry, intact ED Course Vital Signs 05/14/19 05/14/19 09:13 12:04 Temperature 98.4 F Pulse Rate 74 71 Respiratory 17 16 Rate Blood Pressure 125/77 Blood Pressure 130/74 [Left] O2 Sat by Pulse 100 100 Oximetry ED Medical Decision Making - Lab Data Result diagrams: 05/14/19 09:22 05/14/19 09:22 Lab Results 05/14/19 05/14/19 05/14/19 Range/Units 09:22 09:22 09:22 WBC 6.8 (4.5-11.0) K/mm3 RBC 3.50 L (3.65-5.03) M/mm3 Hgb 11.3 (10.1-14.3) gm/dl Hct 34.1 (30.3-42.9) % MCV 98 H (79-97) fl MCH 32 (28-32) pg MCHC 33 (30-34) % RDW 15.1 (13.2-15.2) % Plt Count 220 (140-440) K/mm3 Lymph % (Auto) 27.8 (13.4-35.0) % Edwards % (Auto) 9.3 H (0.0-7.3) % Eos % (Auto) 1.6 (0.0-4.3) % Baso % (Auto) 0.3 (0.0-1.8) % Lymph # 1.9 (1.2-5.4) K/mm3 Edwards # 0.6 (0.0-0.8) K/mm3 Eos # 0.1 (0.0-0.4) K/mm3 Baso # 0.0 (0.0-0.1) K/mm3 Seg Neutrophils % 61.0 (40.0-70.0) % Seg Neutrophils # 4.1 (1.8-7.7) K/mm3 Sodium 141 (137-145) mmol/L Potassium 4.1 (3.6-5.0) mmol/L Chloride 101.4 (98-107) mmol/L Carbon Dioxide 26 (22-30) mmol/L Anion Gap 18 mmol/L BUN 16 (7-17) mg/dL Creatinine 1.2 (0.7-1.2) mg/dL Estimated GFR 54 ml/min BUN/Creatinine Ratio 13 % Glucose 185 H (65-100) mg/dL Calcium 9.6 (8.4-10.2) mg/dL Total Bilirubin 0.50 (0.1-1.2) mg/dL AST 15 (5-40) units/L ALT 9 (7-56) units/L Alkaline Phosphatase 66 (35-129) units/L Total Protein 7.5 (6.3-8.2) g/dL Albumin 4.4 (3.9-5) g/dL Albumin/Globulin Ratio 1.4 % Lipase 34 (13-60) units/L Urine Color (Yellow) Urine Turbidity (Clear) Urine pH (5.0-7.0) Ur Specific [place] (1.003-1.030) Urine Protein (Negative) mg/dL Urine Glucose (UA) (Negative) mg/dL Urine Ketones (Negative) mg/dL Urine Blood (Negative) Urine Nitrite (Negative) Urine Bilirubin (Negative) Urine Urobilinogen (<2.0) mg/dL Ur Leukocyte Esterase (Negative) Urine WBC (Auto) (0.0-6.0) /HPF Urine RBC (Auto) (0.0-6.0) /HPF U Epithel Cells (Auto) (0-13.0) /HPF Urine Bacteria (Auto) (Negative) /HPF Ur Transition Epith Cell /HPF Urine Mucus /HPF 05/14/19 Range/Units Unknown WBC (4.5-11.0) K/mm3 RBC (3.65-5.03) M/mm3 Hgb (10.1-14.3) gm/dl Hct (30.3-42.9) % MCV (79-97) fl MCH (28-32) pg MCHC (30-34) % RDW (13.2-15.2) % Plt Count (140-440) K/mm3 Lymph % (Auto) (13.4-35.0) % Edwards % (Auto) (0.0-7.3) % Eos % (Auto) (0.0-4.3) % Baso % (Auto) (0.0-1.8) % Lymph # (1.2-5.4) K/mm3 Edwards # (0.0-0.8) K/mm3 Eos # (0.0-0.4) K/mm3 Baso # (0.0-0.1) K/mm3 Seg Neutrophils % (40.0-70.0) % Seg Neutrophils # (1.8-7.7) K/mm3 Sodium (137-145) mmol/L Potassium (3.6-5.0) mmol/L Chloride (98-107) mmol/L Carbon Dioxide (22-30) mmol/L Anion Gap mmol/L BUN (7-17) mg/dL Creatinine (0.7-1.2) mg/dL Estimated GFR ml/min BUN/Creatinine Ratio % Glucose (65-100) mg/dL Calcium (8.4-10.2) mg/dL Total Bilirubin (0.1-1.2) mg/dL AST (5-40) units/L ALT (7-56) units/L Alkaline Phosphatase (35-129) units/L Total Protein (6.3-8.2) g/dL Albumin (3.9-5) g/dL Albumin/Globulin Ratio % Lipase (13-60) units/L Urine Color Yellow (Yellow) Urine Turbidity Slightly-cloudy (Clear) Urine pH 6.0 (5.0-7.0) Ur Specific [place] 1.011 (1.003-1.030) Urine Protein <15 mg/dl (Negative) mg/dL Urine Glucose (UA) Neg (Negative) mg/dL Urine Ketones Neg (Negative) mg/dL Urine Blood Neg (Negative) Urine Nitrite Pos (Negative) Urine Bilirubin Neg (Negative) Urine Urobilinogen < 2.0 (<2.0) mg/dL Ur Leukocyte Esterase Lg (Negative) Urine WBC (Auto) 70.0 H (0.0-6.0) /HPF Urine RBC (Auto) 6.0 (0.0-6.0) /HPF U Epithel Cells (Auto) 2.0 (0-13.0) /HPF Urine Bacteria (Auto) 1+ (Negative) /HPF Ur Transition Epith Cell 1 /HPF Urine Mucus Few /HPF - Radiology Data Radiology results: report reviewed CT ABDOMEN AND PELVIS WITH CONTRAST HISTORY: Abdominal pain, nausea, vomiting, diarrhea. History of small bowel obstruction. COMPARISON: 10/31/2016 CT abdomen pelvis with contrast report TECHNIQUE: Axial CT images were obtained through the abdomen and pelvis after 100 cc of Omnipaque 300 intravenously. Sagittal and coronal reformatted images. All CT scans at this location are performed using CT dose reduction for ALARA by means of automated exposure control. FINDINGS: CT ABDOMEN: Lung Bases: Clear. Borderline to mild cardiomegaly. Liver: No significant abnormality. Biliary: No significant abnormality. Spleen: No significant abnormality. Unenlarged. 1.9 cm hypodensity in the posterior medial spleen probably represents a small hemangioma. Pancreas: No significant abnormality. Adrenals: No significant abnormality. Kidneys: No significant abnormality. Lymphatics: No lymphadenopathy. Vasculature: No significant abnormality. Bowel/Peritoneum: There is a solitary mildly dilated loop of small bowel in the left upper quadrant measuring 3.1 cm in diameter. The remaining small bowel loops and colon are unremarkable. Appendectomy changes are suspected. CT PELVIS: : Sternotomy changes. The bladder and distal ureters are unremarkable. Osseous Structures: No significant abnormality. Additional Findings: None IMPRESSION: No acute inflammatory process is identified. There is a solitary mildly dilated loop of small bowel in the left upper quadrant. I am not entirely convinced this represents an obstruction. The remaining small bowel loops and colon are within normal limits. Focal ileus could be considered. Please correlate with the patient's clinical presentation and consider further imaging if necessary. Small bowel series could be helpful if obstruction is suspected. Signer Name: Aniket Courtney Jr, MD Signed: 05/14/2019 11:02 AM Workstation Name: [id number] Transcribed By: TTR Dictated By: ANIKET COURTNEY JR, MD Electronically Authenticated By: ANIKET COURTNEY JR, MD Signed Date/Time: 05/14/19 1102 DD/ 1056 TD/TT: - Medical Decision Making Patient is a 69-year-old female presents emergency room with complaints of generalized abdominal pain and cramping that began two days ago. she states thr ee nights ago she believes she may have eaten a spoiled tomato. She states the next morning when she woke up she began to have diarrhea, abdominal pain, increased gas. She states she has not had a bowel movement since 2 days ago. Has associated nausea. Denies any emesis. Denies any recent antibiotics. She is tolerating by mouth intake. she denies any melena or hematochezia. She has past medical history of high blood pressure and diabetes. Patient states approximately 2 years ago she had a bowel obstruction with exploratory laparoscopy. She has a past abdominal surgical history of 3 and hysterectomy. vitals are normal. on exam mild generalized abdominal TTP, no guarding, no rebound, no peritoneal signs, normal bowel sounds. labs are stable. no leukocytosis, pt is afebrile. UA shows evidence of UTI with many WBCs and large leukocyte esterase. pt given 1L of NS, zofran, and ceftriaxone. pt states that she feels much better, pt has no abd pain, pt is tolerating PO intake. pt evaluated by Dr. Chin, ER attending who did an abdominal exam with no pain elicited and agrees unlikely to be obstruction. CT abd pelvis: No acute inflammatory process is identified. There is a solitary mildly dilated loop of small bowel in the left upper quadrant. I am not entirely convinced this represents an obstruction. The remaining small bowel loops and colon are within normal limits. Focal ileus could be considered. Please correlate with the patient's clinical presentation and consider further imaging if necessary. Small bowel series could be helpful if obstruction is suspected. pt given prescription for keflex and zofran. advised pt to please take medication as prescribed. take your antibiotics to completion. drink plenty of water. Follow up with a primary care doctor in the next 2-3 days. Return to the emergency room immediately for any new or worsening symptoms including but not limited to unable to tolerate by mouth intake, worsening abdominal pain, vomiting, fever, chills, unable to have a bowel movement or pass gas, etc. discussed with pt that if experiencing any signs or symptoms of obstruction return immediately. pt states that her discomfort today does not feel like when she had an obstruction, she states the pain was much worse then. - Differential Diagnosis UTI, colitis, bowel obstruction, gastroenteritis, cholecystitis, pancreatit Critical care attestation.: If time is entered above; I have spent that time in minutes in the direct care of this critically ill patient, excluding procedure time. ED Disposition Clinical Impression: Abdominal pain Qualifiers: Abdominal location: generalized Qualified Code(s): R10.84 - Generalized abdominal pain UTI (urinary tract infection) Qualifiers: Urinary tract infection type: acute cystitis Hematuria presence: without hematuria Qualified Code(s): N30.00 - Acute cystitis without hematuria Disposition: TO HOME OR SELFCARE Is pt being admited?: No Does the pt Need Aspirin: No Condition: Stable Instructions: Urinary Tract Infection in Women (ED), Abdominal Pain (ED) Additional Instructions: Please take medication as prescribed. take your antibiotics to completion. drink plenty of water. Follow up with a primary care doctor in the next 2-3 days. Return to the emergency room immediately for any new or worsening symptoms including but not limited to unable to tolerate by mouth intake, worsening abdominal pain, vomiting, fever, chills, unable to have a bowel movement or pass gas, etc. Prescriptions: cephALEXin [Keflex] 500 mg PO BID 7 Days #14 cap Ondansetron [Zofran Odt] 4 mg PO Q8HR PRN #14 tab.rapdis PRN Reason: Nausea And Vomiting Referrals: PRIMARY CARE, [Primary Care Provider] - 2-3 Days Time of Disposition: 11:51 Print Language: KINYARWANDA
[2019-05-14 10:07] LABS: Albumin 4.4 g/dL (3.9-5); Calcium 9.6 mg/dL (8.4-10.2)
[2019-05-14 10:55] LABS: Bacteria,Urine 1+ /HPF (Negative); Bilirubin,Urine NEG (Negative); Blood,Urine NEG (Negative); Color,Urine Yellow (Yellow); Mucus,Urine FEW /HPF; Protein,Urine <15 mg/dL mg/dL (Negative); Urobilinogen,Urine < 2.0 mg/dL (<2.0)
--- NOTE | 2019-05-14 11:07 | Cat Scan Report ---
CT ABDOMEN AND PELVIS WITH CONTRAST HISTORY: Abdominal pain, nausea, vomiting, diarrhea. History of small bowel obstruction. COMPARISON: 10/31/2016 CT abdomen pelvis with contrast report TECHNIQUE: Axial CT images were obtained through the abdomen and pelvis after 100 cc of Omnipaque 300 intravenously. Sagittal and coronal reformatted images. All CT scans at this location are performed using CT dose reduction for ALARA by means of automated exposure control. FINDINGS: CT ABDOMEN: Lung Bases: Clear. Borderline to mild cardiomegaly. Liver: No significant abnormality. Biliary: No significant abnormality. Spleen: No significant abnormality. Unenlarged. 1.9 cm hypodensity in the posterior medial spleen pr obably represents a small hemangioma. Pancreas: No significant abnormality. Adrenals: No significant abnormality. Kidneys: No significant abnormality. Lymphatics: No lymphadenopathy. Vasculature: No significant abnormality. Bowel/Peritoneum: There is a solitary mildly dilated loop of small bowel in the left upper quadrant m easuring 3.1 cm in diameter. The remaining small bowel loops and colon are unremarkable. Appendectomy changes are suspected. CT PELVIS: : Sternotomy changes. The bladder and distal ureters are unremarkable. Osseous Structures: No significant abnormality. Additional Findings: None IMPRESSION: No acute inflammatory process is identified. There is a solitary mildly dilated loop of small bowel in the left upper quadrant. I am not entirely convinced this represents an obstruction. The remaining small bowel loops and colon are within normal limits. Focal ileus could be considered. Please correlate with the patient's clinical presentation a nd consider further imaging if necessary. Small bowel series could be helpful if obstruction is suspe cted. Signer Name: Aniket Bowen Jr, MD Signed: 05/14/2019 11:02 AM Workstation Name: [id number]
[2019-05-14] MEDS ORDERED: ROCEPHIN/NS 1 GM/50 ML 1 GM/50 ML BAG IV ONE (11:25)
[2019-05-14 12:05] VITALS: BP 130/74
== END 2019-05-14 12:04 | disposition home or self-care (01) ==
LOC: ED 08:57
DX: N39.0 Urinary tract infection, site not specified (principal); I10 Essential (primary) hypertension; E11.9 Type 2 diabetes mellitus without complications; E78.5 Hyperlipidemia, unspecified; Z88.6 Allergy status to analgesic agent; Z88.8 Allergy status to other drugs, medicaments and biological substances; Z88.2 Allergy status to sulfonamides; Z79.899 Other long term (current) drug therapy
CPT/HCPCS: 36415; 74177; 80053; 81001; 83690; 85025; 87076; 87086; 87186; 96361; 96374; 96375; 99284; J0696; J2405; J7030; Q9967